=== PATIENT | female | born 1960 | race Caucasian/White ===

== ENCOUNTER → 2017-03-20 | Outpatient (CLI) | payer MEDICARE ==
--- NOTE | 2017-03-21 09:38 | MM ---
Reason for exam: screening (asymptomatic). Last mammogram was performed 1 year and 11 months ago. History: Patient is postmenopausal. Family history of breast cancer in maternal aunt at age 75. Took estrogen for 6 years 4 months. Physical Findings: A clinical breast exam by your physician is recommended on an annual basis and results should be correlated with mammographic findings. MG 3D Screening Mammo W/Cad Bilateral CC and MLO view(s) were taken. Prior study comparison: April 28, 2015, bilateral MG screening mammo w CAD. August 14, 2012, bilateral digital screening mammo w/CAD. Finding: There are new vascular calcifications in the right breast. Increase in number of calcifications since April 28, 2015 and August 14, 2012. ASSESSMENT: Benign, BI-RAD 2 RECOMMENDATION: Routine screening mammogram of both breasts in 1 year.
== END | disposition home or self-care (01) ==
LOC: RADMAMWWP 14:05
PROVIDERS: ATTEND Internal Medicine
DX: Z12.31 Encounter for screening mammogram for malignant neoplasm of breast (principal)
CPT/HCPCS: 77063; G0202

== ENCOUNTER 2018-09-22 10:00 | Emergency (ER) | payer MEDICARE ==
[2018-09-22 10:17] VITALS: BP 111/70; PULSE 93; RESP 16; TEMP 98.1
--- NOTE | 2018-09-22 10:25 | ED ---
General Adult HPI - General Chief complaint: Extremity Injury, Lower Stated complaint: fall, rt ankle pain Time Seen by Provider: 09/22/18 10:20 Source: patient, RN notes reviewed Mode of arrival: wheelchair Limitations: no limitations - History of Present Illness Initial comments: Patient 57-year-old female presenting to the emergency room today with a chief complaint of injury to the right foot and ankle that occurred early this morning. She states that she went to get up out of the chair in the right ankle gave out and she rolled over. She states that there is pain over the lateral aspect. Patient denies any other injury or complaint. Patient denies any recent fever, chills, shortness of breath, chest pain, back pain, abdominal pain, nausea or vomiting, headaches or visual changes, or any other complaints. - Related Data Home Medications Medication Instructions Recorded Confirmed Zolpidem Tartrate [Ambien] 5 mg PO HS 09/16/14 01/17/16 Previous Rx's Medication Instructions Recorded Aspirin 325 mg PO BID #60 tab 01/18/16 Docusate [Colace] 100 mg PO DAILY #30 capsule 01/18/16 Famotidine [Pepcid] 20 mg PO DAILY #30 tablet 01/18/16 HYDROcodone/APAP 7.5-325MG [[place] 1 - 2 each PO Q6HR PRN #60 tab 01/18/16 7.5-325] Levofloxacin [Levaquin] 500 mg PO DAILY #3 tab 01/18/16 Multivitamins, Thera [Multivitamin 1 each PO DAILY@1200 #30 tab 01/18/16 (formulary)] traMADol HCl [Ultram] 50 mg PO Q6H PRN #40 tab 01/18/16 Ibuprofen [Motrin] 600 mg PO Q6HR PRN #40 day 09/22/18 Allergies Allergy/AdvReac Type Severity Reaction Status Date / Time No Known Allergies Allergy Verified 09/22/18 10:17 Review of Systems ROS Statement: Those systems with pertinent positive or pertinent negative responses have been documented in the HPI. ROS Other: All systems not noted in ROS Statement are negative. Past Medical History Past Medical History: Thyroid Disorder History of Any Multi-Drug Resistant Organisms: None Reported Past Surgical History: Hysterectomy, Orthopedic Surgery Additional Past Surgical History / Comment(s): ALEX BUNION SX Past Anesthesia/Blood Transfusion Reactions: Postoperative Nausea & Vomiting ( PONV) Past Psychological History: No Psychological Hx Reported Smoking Status: Former smoker Past Alcohol Use History: Occasional Past Drug Use History: None Reported - Past Family History Mother History Unknown: Yes General Exam - General Exam Comments Initial Comments: General: The patient is awake and alert, in no distress, and does not appear acutely ill. Neck: The neck is supple, there is no tenderness or JVD. Musculoskeletal: Patient has normal appearance of the right foot and ankle no obvious deformity. Does have some mild tenderness over the fourth and fifth proximal metatarsals. Tender in the ATFL area. No tenderness over the lateral or medial malleolus. Pedal pulse 2+ per sensation intact. Shows good range motion. Neurological: A&O x 3. CN II-XII intact, There are no obvious motor or sensory deficits. Coordination appears grossly intact. Speech is normal. Skin: Skin is warm and dry and no rashes or lesions are noted. Psychiatric: Normal mood and affect. Limitations: no limitations Course Vital Signs 09/22/18 10:15 Temperature 98.1 F Pulse Rate 93 Respiratory 16 Rate Blood Pressure 111/70 O2 Sat by Pulse 99 Oximetry Medical Decision Making - Medical Decision Making Patient's x-rays reviewed are negative for any acute fracture dislocation. Patient tender in the ATFL. Findings consistent with ankle sprain. Patient given brace here in the emergency room. When she is up moving around. Bowel sounds. patient is advised follow-up with family physician/orthopedics in 7-10 days for repeat x-rays if symptoms persist. advised to ice elevate the affected area and use ibuprofen for pain. Disposition Clinical Impression: Ankle sprain Disposition: HOME SELF-CARE Condition: Good Instructions: Ankle Sprain (ED) Additional Instructions: Please continue to ice elevate the affected area at least 4 times a day for 20 minutes at a time. Please use Tylenol/ibuprofen for pain. Please follow-up in 7-10 days for repeat x-rays if symptoms persist. Please return to emergency room for any other concerns. Prescriptions: Ibuprofen [Motrin] 600 mg PO Q6HR PRN #40 day PRN Reason: Pain Is patient prescribed a controlled substance at d/c from ED?: No Referrals: Patti Chandler MD [Primary Care Provider] - 1-2 days Time of Disposition: 11:07
--- NOTE | 2018-09-22 10:46 | XR ---
EXAMINATION TYPE: XR foot complete RT, XR ankle complete RT DATE OF EXAM: 09/22/2018 COMPARISON: NONE HISTORY: Pain TECHNIQUE: Frontal, lateral and oblique images of the right ankle are obtained. COMPARISON: None. FINDINGS: There is no acute fracture/dislocation evident. The joint spaces appear within normal serra its. The overlying soft tissue appears unremarkable. IMPRESSION: There is no acute fracture or dislocation seen. EXAMINATION TYPE: XR foot complete RT, XR ankle complete RT DATE OF EXAM: 09/22/2018 CLINICAL HISTORY: pain TECHNIQUE: Frontal, lateral and oblique images of the right foot are obtained. COMPARISON: None. FINDINGS: There is no acute fracture/dislocation evident. Fusion interphalangeal joint great toe. Th e overlying soft tissue appears unremarkable. IMPRESSION: There is no acute fracture or dislocation. ICD 10 NO FRACTURE, INITIAL EVALUATION
== END 2018-09-22 11:30 | disposition home or self-care (01) ==
LOC: EC 10:00
DX: S93.401A Sprain of unspecified ligament of right ankle, initial encounter (principal); Z87.891 Personal history of nicotine dependence; Z79.899 Other long term (current) drug therapy; X50.1XXA Overexertion from prolonged static or awkward postures, initial encounter; Y92.009 Unspecified place in unspecified non-institutional (private) residence as the place of occurrence of the external cause
CPT/HCPCS: 99283

== ENCOUNTER → 2018-10-01 | Outpatient (CLI) | payer MEDICARE ==
--- NOTE | 2018-10-01 14:24 | XR ---
EXAMINATION TYPE: XR foot complete RT DATE OF EXAM: 10/01/2018 CLINICAL HISTORY: pain TECHNIQUE: Frontal, lateral and oblique images of the right foot are obtained. COMPARISON: 09/22/2018 FINDINGS: There is no acute fracture/dislocation evident. Again noted is fusion of the interphalange al joint great toe. The overlying soft tissue appears unremarkable. IMPRESSION: There is no acute fracture or dislocation. ICD 10 NO FRACTURE, INITIAL EVALUATION
== END | disposition home or self-care (01) ==
LOC: RADXRYALE 13:44
PROVIDERS: ATTEND Physician Assistant Medical
DX: M25.571 Pain in right ankle and joints of right foot (principal)

== ENCOUNTER → 2018-10-09 | Outpatient (CLI) | payer MEDICARE ==
--- NOTE | 2018-10-09 08:51 | MR ---
EXAMINATION TYPE: MR shoulder LT wo con DATE OF EXAM: 10/09/2018 COMPARISON: Outside left shoulder x-ray September 03, 2018 HISTORY: Left Shoulder Pain per order. Pain for 4 months per patient. TECHNIQUE: Multiplanar, multisequence imaging of the left shoulder is performed without contrast. FINDINGS: Rotator Cuff: There is some increased signal in the distal supraspinatus and infraspinatus tendons ne ar articular surface. There is small articular surface tear of distal supraspinatus tendon measuring roughly 4 mm transversely paracoronal image 12 by 5 to 6 mm AP diameter parasagittal image 6 . No ful l-thickness retracted tear is seen. Rotator cuff muscle bulk is preserved. Subscapularis tendon is in tact. Acromioclavicular Joint: There is mild to moderate narrowing with mild capsular hypertrophy at acromi oclavicular joint. Inferior fat plane is maintained. No significant spurring is seen. Distal acromion morphology is slightly downsloping. Glenohumeral Joint: Mild narrowing glenohumeral joint with small to moderate-sized effusion is presen t. Labrum: Some degenerative increased signal superior labrum is identified. Biceps Tendon: The long head of biceps is in normal location within bicipital groove. Bone marrow signal: Some heterogeneity consistent with red marrow reconversion is present. Other: Subdeltoid/subacromial fluid is seen consistent with mild bursitis. IMPRESSION: 1. Tendinosis of distal supraspinatus and infraspinatus tendons with small focal articular surface te ar distal supraspinatus tendon noted. 2. Mild to moderate glenohumeral and acromioclavicular joint arthropathy, type II downsloping acromio n noted.
== END | disposition home or self-care (01) ==
LOC: RADMRIMAIN 07:49
PROVIDERS: ATTEND Orthopaedic Surgery
DX: S46.812A Strain of other muscles, fascia and tendons at shoulder and upper arm level, left arm, initial encounter (principal); M19.012 Primary osteoarthritis, left shoulder; M75.82 Other shoulder lesions, left shoulder

== ENCOUNTER → 2018-10-28 | Outpatient (CLI) | payer MEDICARE ==
--- NOTE | 2018-10-28 18:43 | MR ---
EXAMINATION TYPE: MR lumbar spine wo con DATE OF EXAM: 10/28/2018 COMPARISON: None HISTORY: 58-year-old female Severe Back pain x3 months TECHNIQUE: Multiplanar, multisequence images of the lumbar spine were acquired. Findings: Vertebral body heights are preserved and alignment is maintained. No suspicious bone marrow replacement. Conus medullaris is normal. No prevertebral or paravertebral soft tissue abnormality seen. The exam is limited due to patient motion. Mild intervertebral disc desiccation seen variably throughout. Mild bulging disks mid to lower lumbar spine as well as facet arthropathy lower lumbar spine. From T12 through L3 levels, no spinal canal or neuroforaminal stenosis. At L3-L4, facet arthropathy with minimal disc bulge. There is minimal inferior foraminal narrowing on the right. No spinal canal stenosis. L4-L5, facet arthropathy with minimal bulging disc. No significant spinal canal or neuroforaminal bhumi nosis. At L5-S1, facet arthropathy is present and minimal bulging disc. No significant spinal canal or landon inal stenosis. IMPRESSION: 1. Mild intervertebral disc desiccation seen variably throughout and minimal bulging discs mid to low er lumbar spine. 2. Mild facet arthropathy lower lumbar spine. 3. No focal disc herniation or significant spinal canal or foraminal stenosis seen.
== END | disposition home or self-care (01) ==
LOC: RADMRIMAIN 12:51
PROVIDERS: ATTEND Family Medicine
DX: M51.26 Other intervertebral disc displacement, lumbar region (principal); M46.96 Unspecified inflammatory spondylopathy, lumbar region
CPT/HCPCS: 72148

== ENCOUNTER → 2018-11-18 | Outpatient (CLI) | payer MEDICARE ==
[2018-11-18 13:40] LABS: Basophils # (A) 0.1 k/uL (0-0.2); Basophils % (A) 1 %; Eosinophils # (A) 1.2 k/uL (0-0.7); Eosinophils % (A) 9 %; HCT 31.6 % (34.0-46.0); HGB 9.2 gm/dL (11.4-16.0); Hypochromasia Marked; Lymphocytes # (A) 2.7 k/uL (1.0-4.8); Lymphocytes % (A) 21 %; MCH 22.8 pg (25.0-35.0); MCHC 29.2 g/dL (31.0-37.0); MCV 78.1 fL (80.0-100.0); Mean Platelet Volume 6.4; Monocytes # (A) 0.8 k/uL (0-1.0); Monocytes % (A) 6 %; Neutrophils # (A) 7.7 k/uL (1.3-7.7); Neutrophils % (A) 60 %; Platelet Count 712 k/uL (150-450); RBC 4.05 m/uL (3.80-5.40); RDW 15.4 % (11.5-15.5); WBC 12.9 k/uL (3.8-10.6)
[2018-11-18 14:01] LABS: Potassium 5.2 mmol/L (3.5-5.1)
== END | disposition home or self-care (01) ==
LOC: LABPAT 11:47
PROVIDERS: ATTEND Orthopaedic Surgery
DX: Z01.812 Encounter for preprocedural laboratory examination (principal); M75.42 Impingement syndrome of left shoulder; Z01.818 Encounter for other preprocedural examination
CPT/HCPCS: 36415; 80051; 85025; 93005

== ENCOUNTER 2018-11-27 08:47 | Day surgery (SDC) | payer MEDICARE ==
[2018-11-26 08:51] VITALS: BMI 31.8
--- NOTE | 2018-11-26 14:18 | HP ---
HISTORY AND PHYSICAL DATE OF SURGERY: 11/27/2018 Charleen Brody is a 58-year-old patient seen with progressive left shoulder pain. We discussed treatment options. She elected to proceed with arthroscopy. Consent was obtained. PAST MEDICAL HISTORY: Hypothyroidism. PAST SURGICAL HISTORY: Cholecystectomy, hysterectomy. MEDICATIONS: 1. Ambien. 2. Synthroid. ALLERGIES: None. SOCIAL HISTORY: She denies tobacco use. PHYSICAL EVALUATION OF THE LEFT SHOULDER: Flexion 160 degrees, abduction 150 degrees, external rotation is 50 degrees. Weakness, there is tenderness along the anterolateral acromion rotator cuff insertion site. Impingement is positive AT 100 degrees. Drop-arm sign is positive. Distal neurovascular exam is intact. RADIOGRAPHS OF THE LEFT SHOULDER: Revealed a type 2 anterior acromion, acromioclavicular joint osteoarthritis and cystic changes of the greater tuberosity. An MRI of the left shoulder revealed rotator cuff tear and acromioclavicular joint osteoarthritis. IMPRESSION: Left shoulder impingement with rotator cuff tear. PLAN: Left shoulder arthroscopy with subacromial decompression, probable arthroscopic rotator cuff repair, possible Tamra procedure and debridement. MMODL / IJN: [id number] /
[~2018-11-27 08:47] MED LIST: DEXAMETHASONE SOD PHOSPHATE 10 MG/ML 1 ML VIAL IV ONE; HYDROmorphone 0.5 MG/0.5 ML SYRINGE IVP PRN; LACTATED RINGERS 1,000 ML IV SCH; MIDAZOLAM (PF) 2 MG/2 ML VIAL IV PRN; ONDANSETRON 4 MG/2 ML VIAL IVP ONE; SCOPOLAMINE 1.5MG/72HR PATCH TRANSDERM ONE; ceFAZolin IN SWFI 2 GM/20 ML SYRINGE IVP ONE
[2018-11-27 09:44] LABS: Anisocytosis Slight; Basophils % (A) 0 %; Eosinophils # (A) 0.8 k/uL (0-0.7); Eosinophils % (A) 7 %; HCT 30.5 % (34.0-46.0); HGB 8.9 gm/dL (11.4-16.0); Hypochromasia Marked; Lymphocytes # (A) 1.1 k/uL (1.0-4.8); Lymphocytes % (A) 9 %; MCH 22.7 pg (25.0-35.0); MCHC 29.3 g/dL (31.0-37.0); MCV 77.5 fL (80.0-100.0); Mean Platelet Volume 5.6; Microcytosis Slight; Monocytes # (A) 0.5 k/uL (0-1.0); Monocytes % (A) 4 %; Neutrophils % (A) 78 %; Platelet Count 554 k/uL (150-450); RBC 3.93 m/uL (3.80-5.40); RDW 16.1 % (11.5-15.5); WBC 11.6 k/uL (3.8-10.6)
[2018-11-27] MEDS ORDERED: fentaNYL (PF) 50 MCG/ML 2 ML AMP IV ONE (09:51)
[2018-11-27] MEDS ORDERED: ROPIVACAINE 5 MG/ML 30 ML VIAL ONE (10:01)
[2018-11-27] MEDS ORDERED: KETOROLAC 30 MG/ML 1 ML VIAL ONE (10:01)
[2018-11-27] MEDS ORDERED: fentaNYL (PF) 50 MCG/ML 2 ML AMP ONE (10:01)
[2018-11-27] MEDS ORDERED: ROCURONIUM BROMIDE 10 MG/ML 10 ML VIAL IV ONE (10:01)
[2018-11-27] MEDS ORDERED: LIDOCAINE 1% INJ 10MG/ML (20 ML MDV) ONE (10:01)
[2018-11-27] MEDS ORDERED: NEOSTIGMINE 1 MG/ML 10 ML VIAL ONE (10:01)
[2018-11-27] MEDS ORDERED: MIDAZOLAM 2 MG/2 ML VIAL ONE (10:01)
[2018-11-27] MEDS ORDERED: GLYCOPYRROLATE 0.2 MG/ML 2 ML VIAL ONE (10:01)
[2018-11-27] MEDS ORDERED: PROPOFOL 10 MG/ML 20 ML VIAL IV ONE (10:01)
[2018-11-27] MEDS ORDERED: PHENYLEPHRINE-0.9% NACL SYG 1 MG/10 ML SYRINGE ONE (10:01)
--- NOTE | 2018-11-27 10:08 | P.ONQ ---
Anesthesiology Proc Note - PNB - Peripheral Nerve Block Performed Left Interscalene Single Time Out Performed: Yes ([id number]) Procedure Start Time: :52 Procedure Stop Time: :59 Indication: Acute Post-Operative Pain, Dx/Pain Location (Left Shoulder) Sedation Type: Sedate with meaningful contact maintained Preparation: Sterile Prep Catheter: None Needle Types: On-Q Needle Size: 100mm (4") Needle Gauge: 21 Technique: Ultrasound Injectate: Other (see comment) (20ml 0.375% Ropivacaine) Blood Aspirated: No Pain Paresthesia on Injection Noted: No Resistance on Injection: Normal Events: Uneventful and Well Tolerated
[2018-11-27 11:35] VITALS: TEMP 97.1
--- NOTE | 2018-11-27 11:38 | P.OP ---
Date of Procedure: 11/27/18 Preoperative Diagnosis: Left shoulder impingement Postoperative Diagnosis: 1. Left shoulder rotator cuff tear 2. Left shoulder impingement 3. Left shoulder acromioclavicular joint osteoarthritis 4. Left shoulder partial long head biceps tendon tear Procedure(s) Performed: 1. Left shoulder arthroscopic rotator cuff repair 2. Left shoulder arthroscopic subacromial decompression 3. Left shoulder arthroscopic Tamra procedure 4. Left shoulder arthroscopic biceps tenotomy Implants: None Anesthesia: YESENIA Surgeon: Mandeep Lopez [employer] Set Up Operator #1: Mehrdad Nelson Estimated Blood Loss (ml): 10 Pathology: none sent Condition: stable Disposition: PACU Indications for Procedure: 58-year-old patient seen with progressive left shoulder pain. After treatment options were discussed, she elected to proceed with arthroscopy. Operative Findings: See description of procedure Description of Procedure: Patient underwent an interscalene block by department of anesthesia. The patient was then taken to the operative suite. The patient underwent a general anesthetic by the department of anesthesia. The patient was placed into a lateral position and secured. There was appropriate padding of the bony prominence. Left shoulder was then prepped and draped in normal sterile orthopedic fashion. We placed the extremity in 10 pounds of longitudinal traction. A posterior incision was now made for a posterior working portal site. The trocar and cannula were inserted into the glenohumeral joint. Arthroscopy was initiated. Spinal needle was now inserted anteriorly, to ascertain the anterior working portal site. An incision was now made in that area, a trocar was inserted followed by a probe. There was some partial tearing and hyperemia long head biceps tendon. There was some superficial fraying of the anterior labrum. There were some mild grade 1 chondromalacia changes of the glenoid anteriorly. The posterior and inferior labrum were stable. I performed an arthroscopic biceps tenotomy. I debrided that superficial fraying of the anterior labrum with a motorized shaver. The residual labrum was probed and found to be stable. Instruments were now removed from the glenohumeral joint. Utilizing the posterior working portal site, the trocar and cannula were inserted into the subacromial space. Arthroscopy initiated. I made an incision 2 fingerbreadths lateral to the acromion. I introduced my trocar followed by my [employer] ablator. I now began ablating thick subacromial bursal tissue, which exposed the undersurface of the anterior acromion. There was diminished subacromial space. There was a very prominent anterior acromion. A motorized bur was introduced and a subacromial decompression was performed. I also excised some osteophytes off the inferior aspect of the distal clavicle. The AC joint was visualized and noted to be fairly arthritic. The motorized bur was introduced in the anterior portal site and a Tamra procedure was performed without difficulty, decompressing the AC joint nicely. I turned my attention to the rotator cuff. There was some fraying along the midportion of the supraspinatus tendon. When I probed the anterior there was a full-thickness perforation in the intrasubstance midportion supraspinatus. I debrided the margins down to stable tissue. I now passed 2 simple sutures with good bites of rotator cuff tendon. I now repaired the tear in a [id number] fashion. Residual suture limbs were clipped. The repair was probed and found to be stable. I injected 1 mL Renue intra-articular. Instruments now removed from the portal sites. All portal sites were approximated with nylon suture. Sterile dressings were applied followed by a shoulder sling. Mehrdad LUTZ assisted in this complex case. The patient was awakened, transferred to a bed, and taken to recovery in stable condition.
[2018-11-27] MEDS ORDERED: HYDROcodone/APAP 7.5-325MG 1 EACH TAB PO ONE (13:22)
[2018-11-27 13:39] VITALS: BP 131/90; PULSE 78; RESP 18
== END 2018-11-27 14:35 | disposition home or self-care (01) ==
LOC: OR 08:47
PROVIDERS: ATTEND Orthopaedic Surgery
DX: M19.012 Primary osteoarthritis, left shoulder (principal); M75.42 Impingement syndrome of left shoulder; M75.122 Complete rotator cuff tear or rupture of left shoulder, not specified as traumatic; S46.112A Strain of muscle, fascia and tendon of long head of biceps, left arm, initial encounter; X58.XXXA Exposure to other specified factors, initial encounter; E03.9 Hypothyroidism, unspecified; Z79.890 Hormone replacement therapy; Z79.899 Other long term (current) drug therapy; Z87.891 Personal history of nicotine dependence
CPT/HCPCS: 64415; 84132; 85025; 29827; 29822; C1713; C1765; J2250 ×2; J1100; J2710; J2405; J2001; J3010; J1885; J2795; J2370; J2704; J0690

== ENCOUNTER 2018-12-02 10:33 | Emergency (ER) | payer MEDICARE ==
[2018-12-02 10:55] VITALS: TEMP 98.1
[2018-12-02] MEDS: MORPHINE SULFATE 4 MG/ML SYRINGE IVP STA (12:19)
[2018-12-02] MEDS: DIAZEPAM 5 MG/ML 2 ML INJ IVP STA (12:21)
[2018-12-02 12:47] LABS: Anisocytosis Slight; Basophils # (A) 0.1 k/uL (0-0.2); Basophils % (A) 1 %; Eosinophils # (A) 1.3 k/uL (0-0.7); Eosinophils % (A) 11 %; HCT 31.7 % (34.0-46.0); HGB 9.6 gm/dL (11.4-16.0); Hypochromasia Marked; Lymphocytes # (A) 2.5 k/uL (1.0-4.8); Lymphocytes % (A) 21 %; MCH 22.8 pg (25.0-35.0); MCHC 30.3 g/dL (31.0-37.0); MCV 75.5 fL (80.0-100.0); Mean Platelet Volume 5.6; Microcytosis Slight; Monocytes # (A) 0.6 k/uL (0-1.0); Monocytes % (A) 5 %; Neutrophils # (A) 7.4 k/uL (1.3-7.7); Neutrophils % (A) 62 %; Platelet Count 520 k/uL (150-450); RDW 16.3 % (11.5-15.5); WBC 11.9 k/uL (3.8-10.6)
[2018-12-02 13:00] LABS: ALT 24 U/L (9-52); AST 22 U/L (14-36); Albumin 4.2 g/dL (3.5-5.0); Alkaline Phosphatase 189 U/L (38-126); Anion Gap 9 mmol/L; Blood Urea Nitrogen 15 mg/dL (7-17); Calcium 10.1 mg/dL (8.4-10.2); Carbon Dioxide 27 mmol/L (22-30); Chloride 104 mmol/L (98-107); Glucose 94 mg/dL (74-99); Potassium 4.2 mmol/L (3.5-5.1); Sodium 140 mmol/L (137-145); Total Bilirubin 0.7 mg/dL (0.2-1.3); Total Protein 7.2 g/dL (6.3-8.2)
--- NOTE | 2018-12-02 13:54 | CT ---
EXAMINATION TYPE: CT thoracic spine wo con DATE OF EXAM: 12/02/2018 COMPARISON: None HISTORY: Back pain CT DLP: 870.3 mGycm Automated exposure control for dose reduction was used. FINDINGS: Assessment of the spinal canal is are currently limited due to resolution and artifact. No obvious di sc herniation. Recommend follow-up MRI. Grossly alignment is anatomic. No compression deformities. There is a multilevel mild hypertrophic an d degenerative disc disease. The lower thoracic spine there is a calcification of the disc which is n onspecific and MRI correlation recommended. 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 No acute fracture. Calcification of the disc space of the lower thoracic segment is noted which is nonspecific. Follow-up MRI recommended. 2. Multilevel degenerative disc disease.
--- NOTE | 2018-12-02 14:07 | ED ---
Back Pain HPI - General Chief Complaint: Back Pain/Injury Stated Complaint: back pain Time Seen by Provider: 12/02/18 11:00 Source: patient Limitations: no limitations - History of Present Illness Initial Comments: 58-year-old female presenting today for chief complaint of thoracic back pain. Patient states she has been suffering with pain in the middle of her upper back for quite some time now she states it began in the summertime and has been persistent and constant in characteristic. Patient does describe this as a burning pain in the center of the back that increases with range of motion without radiation. She states that increases with any range of motion including raising her hands over her head. She states she has been evaluated by orthopedic surgery however they obtained a MRI of her lumbar spine not thoracic. Patient states she does occasionally have tingling in her upper extremities bilaterally. Patient states she has not had this recently. Patient states there is no change in the characteristic or intensity of the pain recently however due to the persistence of the pain she presented for evaluation today. Patient states that she does not have pain when she takes her Min[place] however she does not want to have to take this. Patient states she is hoping for alternative solution to pain. Patient denies any recent trauma, history of cancer. Patient denies any dyspnea on exertion chest pain, nausea or vomiting, history of diabetes or hypertension.. Remaining review of systems negative, patient well-appearing upon arrival. There is a sling of the left arm , patient states she had a recent left shoulder surgery. She does deny any change in the pain since left shoulder surgery. Patient denies any hemoptysis, calf swelling, arm swelling, arm or calf pain. - Related Data Home Medications Medication Instructions Recorded Confirmed Levothyroxine Sodium [Synthroid] 100 mcg PO QAM 11/26/18 12/02/18 Nabumetone [Relafen] 750 mg PO BID 12/02/18 12/02/18 Previous Rx's Medication Instructions Recorded HYDROcodone/APAP 7.5-325MG [Mineral 1 each PO Q6HR PRN #28 tab 11/27/18 7.5] Cyclobenzaprine [Flexeril] 10 mg PO HS 15 Days #15 tab 12/02/18 Allergies Allergy/AdvReac Type Severity Reaction Status Date / Time No Known Allergies Allergy Verified 12/02/18 11:12 Review of Systems ROS Statement: Those systems with pertinent positive or pertinent negative responses have been documented in the HPI. ROS Other: All systems not noted in ROS Statement are negative. Past Medical History Past Medical History: Thyroid Disorder History of Any Multi-Drug Resistant Organisms: None Reported Past Surgical History: Hysterectomy, Orthopedic Surgery Additional Past Surgical History / Comment(s): ALEX BUNLENNY SX Past Anesthesia/Blood Transfusion Reactions: Postoperative Nausea & Vomiting ( PONV) Past Psychological History: No Psychological Hx Reported Smoking Status: Former smoker Past Alcohol Use History: Unable to Obtain, Rare Past Drug Use History: None Reported - Past Family History Mother History Unknown: Yes General Exam - General Exam Comments Initial Comments: General: The patient is awake and alert, in no distress, and does not appear acutely ill. Eye: Pupils are equal, round and reactive to light, extra-ocular movements are intact. No nystagmus. There is normal conjunctiva bilaterally. No signs of icterus. Ears, nose, mouth and throat: There are moist mucous membranes and no oral lesions. Neck: The neck is supple, there is no tenderness or JVD. Cardiovascular: There is a regular rate and rhythm. No murmur, rub or gallop is appreciated. Respiratory: Lungs are clear to auscultation, respirations are non-labored, breath sounds are equal. No wheezes, stridor, rales, or rhonchi. Gastrointestinal: Soft, non-distended, non-tender abdomen without masses or organomegaly noted. There is no rebound or guarding present. No CVA tenderness. Bowel sounds are unremarkable. Musculoskeletal: Normal inspection the back. Patient is tender to palpation midline and paravertebral paravertebral of the thoracic spine, palpable muscle tension.. Normal ROM of the lumbar and thoracic spine however patient does complain of tenderness to all movement of the thoracic spine. Strength 5/5 of the upper and lower extremities equal bilaterally. Sensation intact of the upper and lower extremities equal bilaterally. DP and radial pulses equal bilaterally 2+.Capillary refill < 2 seconds. Neurological: A&O x 3. CN II-XII intact, There are no obvious motor or sensory deficits. Coordination appears grossly intact. Speech is normal. Skin: Skin is warm and dry and no rashes or lesions are noted. Psychiatric: Cooperative, appropriate mood & affect, normal judgment. Limitations: no limitations Course Vital Signs 12/02/18 12/02/18 12/02/18 10:52 13:26 14:46 Temperature 98.1 F Pulse Rate 75 70 74 Respiratory 18 16 18 Rate Blood Pressure 148/86 116/71 155/82 O2 Sat by Pulse 98 100 Oximetry Medical Decision Making - Medical Decision Making 58-year-old female presenting today for chief complaint of persistent thoracic back pain for greater than 6 months. Physical examination reveals tenderness to palpation of the thoracic spine both midline and paravertebral, this prompted CT without contrast. This revealed no acute process. Chest x-ray revealed no acute process. Patient appears well, she was giving morphine for pain. She states this result pain. Patient states that anytime pain medication will resolve the pain however she does not want to continue take pain medications. At this time I recommended orthopedic surgery follow-up for thoracic spine MRI. She does have a lumbar MRI on file. Patient is neurovascularly intact. Patient is well-appearing, patient does have elevation of blood pressure which I recommended primary care follow-up. Patient is agreeable plan discharge. Patient is a question of this time. Patient discharged in stable condition appearing well. Laboratory studies within acceptable limits. Case was discussed with attending provider Dr. Haynes in detail prior to patient's discharge - Lab Data Result diagrams: 12/02/18 12:13 12/02/18 12:13 Lab Results 12/02/18 12/02/18 12/02/18 Range/Units 12:13 12:13 12:13 WBC 11.9 H (3.8-10.6) k/uL RBC 4.20 (3.80-5.40) m/uL Hgb 9.6 L (11.4-16.0) gm/dL Hct 31.7 L (34.0-46.0) % MCV 75.5 L (80.0-100.0) fL MCH 22.8 L (25.0-35.0) pg MCHC 30.3 L (31.0-37.0) g/dL RDW 16.3 H (11.5-15.5) % Plt Count 520 H (150-450) k/uL Neutrophils % 62 % Lymphocytes % 21 % Monocytes % 5 % Eosinophils % 11 % Basophils % 1 % Neutrophils # 7.4 (1.3-7.7) k/uL Lymphocytes # 2.5 (1.0-4.8) k/uL Monocytes # 0.6 (0-1.0) k/uL Eosinophils # 1.3 H (0-0.7) k/uL Basophils # 0.1 (0-0.2) k/uL Hypochromasia Marked Anisocytosis Slight Microcytosis Slight Sodium 140 (137-145) mmol/L Potassium 4.2 (3.5-5.1) mmol/L Chloride 104 (98-107) mmol/L Carbon Dioxide 27 (22-30) mmol/L Anion Gap 9 mmol/L BUN 15 (7-17) mg/dL Creatinine 0.69 (0.52-1.04) mg/dL Est GFR (CKD-EPI)AfAm >90 (>60 ml/min/1.73 sqM) Est GFR (CKD-EPI)NonAf >90 (>60 ml/min/1.73 sqM) Glucose 94 (74-99) mg/dL Calcium 10.1 (8.4-10.2) mg/dL Total Bilirubin 0.7 (0.2-1.3) mg/dL AST 22 (14-36) U/L ALT 24 (9-52) U/L Alkaline Phosphatase 189 H (38-126) U/L Troponin I <0.012 (0.000-0.034) ng/mL Total Protein 7.2 (6.3-8.2) g/dL Albumin 4.2 (3.5-5.0) g/dL Disposition Clinical Impression: Thoracic degenerative disc disease, Chronic thoracic back pain Disposition: HOME SELF-CARE Condition: Good Instructions (If sedation given, give patient instructions): Chronic Back Pain (ED) Additional Instructions: Please use medication as discussed. Please follow-up with family doctor in the next 2 days, please follow-up with orthopedic surgery in the next 2-3 days. Recommend outpatient THORACIC MRI. NOT LUMBAR. Please return to emergency room if the symptoms increase or worsen or for any other concerns. Prescriptions: Cyclobenzaprine [Flexeril] 10 mg PO HS 15 Days #15 tab Is patient prescribed a controlled substance at d/c from ED?: No Referrals: Ronnell Vivas DO [Primary Care Provider] - 1-2 days Jv Low DO [Doctor of Osteopathic Medicine] - 1-2 days Time of Disposition: 14:26
--- NOTE | 2018-12-02 14:21 | XR ---
EXAMINATION TYPE: XR chest 2V DATE OF EXAM: 12/02/2018 COMPARISON: 02/18/2015 HISTORY: Back pain. No known injury. TECHNIQUE: Frontal and lateral views of the chest are obtained. FINDINGS: There is no focal air space opacity, pleural effusion, or pneumothorax seen. The cardiac silhouette size is within normal limits. The osseous structures display mild degenerative changes o f the thoracic spine at multiple levels. Cholecystectomy clips are noted. IMPRESSION: No acute cardiopulmonary process. Mild degenerative changes of the thoracic spine in thi s patient with back pain.
[2018-12-02 14:47] VITALS: BP 155/82; PULSE 74; RESP 18
== END 2018-12-02 14:47 | disposition home or self-care (01) ==
LOC: EC 10:33
DX: M51.34 Other intervertebral disc degeneration, thoracic region (principal); E07.9 Disorder of thyroid, unspecified; Z87.891 Personal history of nicotine dependence; Z79.890 Hormone replacement therapy; Z79.1 Long term (current) use of non-steroidal anti-inflammatories (NSAID)
CPT/HCPCS: 36415; 80053; 84484; 85025; 71046; 72128; 99284; 96374; 96375; J2270; J3360

== ENCOUNTER → 2018-12-13 | Outpatient (CLI) | payer MEDICARE ==
--- NOTE | 2018-12-14 19:20 | MR ---
MR scan of the thoracic spine. History back pain. Comparison none. TECHNIQUE: Multiplanar multiecho imaging of the thoracic spine was performed with no contrast. FINDINGS: The thoracic vertebra have normal alignment. Disc spaces are fairly normal. There is mild biconcave c hange in the T10 vertebral body. This could relate to osteomalacia. Thoracic spinal cord has normal s ignal pattern. There is no edema. There is no thoracic spinal stenosis. There is no thoracic paraspin al mass. I see no focal bone destruction. There is also slight T8 mild biconcave change. IMPRESSION: Mild biconcave loss of height of T8 and T10 could relate to osteomalacia.
== END | disposition home or self-care (01) ==
LOC: RADMRIMAIN 20:52
PROVIDERS: ATTEND Physician Assistant Medical
DX: M43.8X4 Other specified deforming dorsopathies, thoracic region (principal); M54.6 Pain in thoracic spine; R93.7 Abnormal findings on diagnostic imaging of other parts of musculoskeletal system
CPT/HCPCS: 72146

== ENCOUNTER → 2019-02-06 | Outpatient (CLI) | payer MEDICARE ==
--- NOTE | 2019-02-06 16:53 | NM ---
EXAMINATION TYPE: NM bone scan whole body DATE OF EXAM: 02/06/2019 COMPARISON: NONE HISTORY: Muscle spasms, abnormality at T8 and T10 Delayed whole-body scanning was performed following the injection of 25 mCi Tc 99m MDP. Images were acquired 3 hours post injection. FINDINGS: Right knee prosthesis is evident. There is mild uptake adjacent to the prosthesis. There is diffuse uptake at the bilateral ankles greater at the right. Some focal uptake may be at the first metatarsophalangeal joint space and at the distal interphalangeal joint space of the great toe on the right. Some diffuse uptake is at the left shoulder. These findings are likely related to dege nerative change. No suspicious uptake is through the axial skeleton. No abnormal uptake in the lower thoracic spine IMPRESSION: 1. Mild uptake at the ankles which may be related to degenerative changes. 2. Right knee prosthesis. 3. No suspicious uptake within the thoracic spine.
== END | disposition home or self-care (01) ==
LOC: RADNMMAIN 10:50
PROVIDERS: ATTEND Physical Medicine & Rehabilitation
DX: R93.7 Abnormal findings on diagnostic imaging of other parts of musculoskeletal system (principal); M54.6 Pain in thoracic spine; E03.9 Hypothyroidism, unspecified; E78.5 Hyperlipidemia, unspecified; M62.830 Muscle spasm of back; Z96.651 Presence of right artificial knee joint
CPT/HCPCS: 78306; A9503

== ENCOUNTER → 2019-11-17 | Outpatient (CLI) | payer MEDICARE ==
--- NOTE | 2019-11-18 13:10 | MM ---
Reason for exam: screening (asymptomatic). Last mammogram was performed 2 years and 8 months ago. History: Patient is postmenopausal. Family history of breast cancer in maternal aunt at age 75. Took estrogen for 6 years 4 months. Physical Findings: A clinical breast exam by your physician is recommended on an annual basis and results should be correlated with mammographic findings. MG 3D Screening Mammo W/Cad Bilateral CC and MLO view(s) were taken. Prior study comparison: March 20, 2017, bilateral MG 3d screening mammo w/cad. April 28, 2015, bilateral MG screening mammo w CAD. The breast tissue is heterogeneously dense. This may lower the sensitivity of mammography. Benign appearing calcifications in the right breast. No significant changes when compared with prior studies. ASSESSMENT: Benign, BI-RAD 2 RECOMMENDATION: Routine screening mammogram of both breasts in 1 year.
== END | disposition home or self-care (01) ==
LOC: RADMAMWWP 15:21
PROVIDERS: ATTEND Family Medicine
DX: Z12.31 Encounter for screening mammogram for malignant neoplasm of breast (principal)
CPT/HCPCS: 77063; 77067

== ENCOUNTER → 2019-11-24 | Outpatient (CLI) | payer MEDICARE ==
--- NOTE | 2019-11-24 10:40 | XR ---
EXAMINATION TYPE: XR chest 2V DATE OF EXAM: 11/24/2019 COMPARISON: Chest x-ray December 02, 2018. HISTORY: History of tobacco use with cough, presurgical study. TECHNIQUE: Frontal and lateral views of the chest are obtained. FINDINGS: Background chronic emphysematous change with right upper lung fibrosis redemonstrated. The re is no focal air space opacity, pleural effusion, or pneumothorax seen. The cardiac silhouette siz e remains within normal limits with atherosclerotic thoracic aorta. The osseous structures are inta ct. IMPRESSION: Chronic changes without acute pulmonary process.
== END | disposition home or self-care (01) ==
LOC: RADXRYALE 10:16
PROVIDERS: ATTEND Physician Assistant Medical
DX: Z01.818 Encounter for other preprocedural examination (principal); F17.211 Nicotine dependence, cigarettes, in remission
CPT/HCPCS: 71046

== ENCOUNTER → 2020-10-13 | Outpatient (CLI) | payer MEDICARE ==
--- NOTE | 2020-10-13 15:50 | XR ---
EXAMINATION TYPE: XR chest 2V DATE OF EXAM: 10/13/2020 COMPARISON: X-ray November 24, 2019 HISTORY: Other chest pain. Left mid back pain. TECHNIQUE: Frontal and lateral views of the chest are obtained. FINDINGS: There is chronic parenchymal changes without suspicious focal air space opacity, pleural effusion, or pneumothorax seen. The cardiac silhouette size is stab le and upper limits of normal with atherosclerotic change aortic knob. Underlying scoliotic curvature is redemonstrated. IMPRESSION: Chronic changes without acute pulmonary process. No significant change from prior.
== END | disposition home or self-care (01) ==
LOC: RADXRYALE 15:28
PROVIDERS: ATTEND Physician Assistant Medical
DX: R91.8 Other nonspecific abnormal finding of lung field (principal); R07.89 Other chest pain
CPT/HCPCS: 71046

== ENCOUNTER → 2021-01-11 | Outpatient (CLI) | payer MEDICARE ==
--- NOTE | 2021-01-14 12:06 | CT ---
EXAMINATION TYPE: CT abdomen pelvis wo con DATE OF EXAM: 01/11/2021 COMPARISON: 09/14/2011 INDICATION: Generalized abdomen pain, dysuria, back pain. DLP: 382.4 mGycm, Automated exposure control for dose reduction was used. CONTRAST: 0 mL of Isovue 300. Study performed with Oral Contrast TECHNIQUE: Axial images were obtained from above the diaphragm to the pubic rami in the axial plane a t 5 mm thick sections. Reconstructed images are reviewed on the computer in the coronal plane. FINDINGS: Limited CT sections are obtained the lung bases. The lung bases are clear. CT ABDOMEN: There is some prominence of the wall of the antrum of the stomach. Liver: Normal Spleen: Normal Pancreas: Normal Adrenal glands: The adrenal glands are normal. Gallbladder: Surgically absent Kidneys: No masses are evident. No hydronephrosis is present. No cysts are present. No renal stone s are identified. Minimal right hydroureter may be present. No obstructing etiology is evident. Aorta: Vascular calcification is within the aorta. Inferior vena cava: Normal. CT PELVIS: Loops of bowel within the abdomen and pelvis are normal. Diverticulosis without acute diverticulitis is present in the sigmoid colon. There are loops of bowel which are incompletely distended or lack oral contrast limiting their evaluation. Appendix: Normal as visualized. Urinary bladder: Normal. Genitourinary structures: Uterus and ovaries are not identified. Osseous structures: No suspicious lytic or sclerotic lesions are evident. IMPRESSIONS: 1. Sigmoid diverticulosis without acute diverticulitis. 2. There appears to be some prominence of the antrum of the stomach. Correlate for antritis. This cou ld be from incomplete distention.
== END ==
LOC: RADCTMAIN 17:21
PROVIDERS: ATTEND Family Medicine
DX: K57.30 Diverticulosis of large intestine without perforation or abscess without bleeding (principal)
CPT/HCPCS: 74176

== ENCOUNTER → 2022-03-02 | Outpatient (CLI) | payer MEDICARE ==
--- NOTE | 2022-03-03 09:09 | BD ---
EXAMINATION TYPE: Axial Bone Density DATE OF EXAM: 03/02/2022 COMPARISON: NONE CLINICAL HISTORY: 61 years year old Female. ICD-10 CODE: M84.80 OTHER DISORDERS OF CONTINUITY OF SHAMAR E Height: 62 Weight: 162.3 FRAX RISK QUESTIONS: Alcohol (3 or more units per day): NO Family History (Parent hip fracture): NO Glucocorticoids (More than 3mos): NO History of Fracture in Adulthood: YES, ANKLE AND HAND Secondary Osteoporosis: 1. Type 1 Diabetes: NO 2. Hyperthyroidism: NO 3. Menopause before 45: YES 4. Malnutrition: NO 5. Chronic liver disease: NO Rheumatoid Arthritis: NO Current Tobacco Use: NO RISK FACTORS HISTORY OF: Hip Fracture (Right/Left): NO Spine Fracture: NO History of Wrist Fracture: NO Surgery to Spine/Hip(right/left)/Wrist (right/left): NO Family History of Osteoporosis: YES MOTHER Active: NO Diet low in dairy products/other sources of calcium: YES Postmenopausal woman: YES Take estrogen and/or progesterone medications: NO Lost more than 2 inches in height since high school: NO Frequent falls: YES Poor Health: YES Hyperparathyroidism: NO Adrenal Insufficiency: NO MEDICATIONS: Prednisone or other steroids: NO Thyroid Medications: YES Which medication: SYNTHROID How Lon YEARS Osteoporosis Medications: NO Additional Medications: REFLUX MEDS, VIT D, Additional History: PT WAS DIAGNOSED WITH MS 2004. EXAM MEASUREMENTS: Bone mineral densitometry was performed using the [employer] System. Bone mineral density as measured about the Lumbar spine is: ----- L1-L4(G/cm2): 1.020 T Score Values are as follows: ----- L1: -1.5 ----- L2: -1.1 ----- L3: -1.2 ----- L4: -1.7 ----- L1-L4: -1.3 BASELINE STUDY Bone mineral density about the R hip (g/cm2): 0.556 Bone mineral density about the L hip (g/cm2): 0.678 T Score values are as follows: -----R Neck: -3.5 -----L Neck: -2.6 -----R Total: -2.9 -----L Total: -1.7 BASELINE STUDY FRAX%s: The graph provided illustrates a 30.0%chance for a major osteoporotic fx and a 11.6% chance f or the hips probability for fx in 10 years time. IMPRESSION: Osteoporosis NOTE: T-SCORE=SD OF THE YOUNG ADULT MEAN.
--- NOTE | 2022-03-06 10:11 | MM ---
Reason for exam: screening (asymptomatic). Last mammogram was performed 2 years and 4 months ago. History: Patient is postmenopausal. Family history of breast cancer in maternal aunt at age 75. Took estrogen for 6 years 4 months. Physical Findings: A clinical breast exam by your physician is recommended on an annual basis and results should be correlated with mammographic findings. MG 3D Screening Mammo W/Cad Bilateral CC and MLO view(s) were taken. Prior study comparison: November 17, 2019, bilateral MG 3d screening mammo w/cad. March 20, 2017, bilateral MG 3d screening mammo w/cad. There are scattered fibroglandular densities. There is no discrete abnormality. No significant changes when compared with prior studies. ASSESSMENT: Incomplete: need additional imaging evaluation, BI-RAD 0 RECOMMENDATION: Ultrasound of both breasts. Manage on a clinical basis with regard to pain. Ultrasound directed to patient's location of pain. [facility] will attempt to contact patient to return for ultrasound.
== END | disposition home or self-care (01) ==
LOC: RADBDWWP 15:32
PROVIDERS: ATTEND Family Medicine
DX: Z12.31 Encounter for screening mammogram for malignant neoplasm of breast (principal); M81.0 Age-related osteoporosis without current pathological fracture; Z78.0 Asymptomatic menopausal state
CPT/HCPCS: 77063; 77067; 77080

== ENCOUNTER → 2022-03-08 | Outpatient (CLI) | payer MEDICARE ==
--- NOTE | 2022-03-08 12:19 | USB ---
Reason for exam: additional evaluation requested from abnormal screening. History: Patient is postmenopausal. Family history of breast cancer in maternal aunt at age 75. Took estrogen for 6 years 4 months. Physical Findings: A clinical breast exam by your physician is recommended on an annual basis and results should be correlated with mammographic findings. US Breast Workup Limited ALEX Right limited breast ultrasound including focal area of concern, retroareolar and axilla demonstrates no cystic or solid lesion seen. Left limited breast ultrasound including focal area of concern, retroareolar and axilla demonstrates no cystic or solid lesion seen. Results were given to the patient verbally at the time of the exam. ASSESSMENT: Negative, BI-RAD 1 RECOMMENDATION: Return to routine screening mammogram schedule for both breasts. Manage patient on a clinical basis.
== END | disposition home or self-care (01) ==
LOC: RADUSWWP 08:52
PROVIDERS: ATTEND Family Medicine
DX: R92.8 Other abnormal and inconclusive findings on diagnostic imaging of breast (principal); Z78.0 Asymptomatic menopausal state; Z80.3 Family history of malignant neoplasm of breast

== ENCOUNTER 2022-07-29 11:31 | Emergency (ER) | payer MEDICARE ==
[2022-07-29 11:39] VITALS: TEMP 97.8
--- NOTE | 2022-07-29 12:13 | ED ---
Fall HPI - General Chief Complaint: Fall Stated Complaint: fall, rib pain Time Seen by Provider: 07/29/22 11:48 Source: patient, RN notes reviewed Mode of arrival: ambulatory - History of Present Illness Initial Comments: This is a 61-year-old female who presents to the emergency department for pain after a fall 2 weeks ago. Patient states that she has multiple sclerosis and he r right leg started shaking, causing her to fall into the doorway. When she fell, she injured the left arm, shoulder, and ribs. Denies hitting her head or any loss of consciousness. She was not evaluated immediately following this incident. She has had progressive pain since, and states that it is becoming harder to breathe due to the rib pain. Denies any fevers, chills, sore throat, cough, dyspnea, chest pain, palpitations, nausea, vomiting, diarrhea, or headaches. MD Complaint: fall Onset/Timin -: week(s) Fall From: standing Location: chest Location - Extremities: Left: Shoulder, Arm Context: tripped/slipped - Related Data Home Medications Medication Instructions Recorded Confirmed Levothyroxine Sodium [Synthroid] 100 mcg PO QAM 11/26/18 12/02/18 Nabumetone [Relafen] 750 mg PO BID 12/02/18 12/02/18 Previous Rx's Medication Instructions Recorded HYDROcodone/APAP 7.5-325MG [[place] 1 each PO Q6HR PRN #28 tab 11/27/18 7.5] Cyclobenzaprine [Flexeril] 10 mg PO HS 15 Days #15 tab 12/02/18 Allergies Allergy/AdvReac Type Severity Reaction Status Date / Time No Known Allergies Allergy Verified 07/29/22 11:39 Review of Systems ROS Statement: Those systems with pertinent positive or pertinent negative responses have been documented in the HPI. ROS Other: All systems not noted in ROS Statement are negative. Past Medical History Past Medical History: Musculoskeletal Disorder, Thyroid Disorder History of Any Multi-Drug Resistant Organisms: None Reported Past Surgical History: Hysterectomy, Orthopedic Surgery Additional Past Surgical History / Comment(s): ALEX BUNION SX Past Anesthesia/Blood Transfusion Reactions: Postoperative Nausea & Vomiting (PONV) Past Psychological History: No Psychological Hx Reported Smoking Status: Never smoker Past Alcohol Use History: Unable to Obtain, Rare Past Drug Use History: None Reported - Past Family History Mother History Unknown: Yes General Exam Limitations: no limitations General appearance: alert, in no apparent distress Head exam: Present: atraumatic, normocephalic, normal inspection Respiratory exam: Present: normal lung sounds bilaterally. Absent: respiratory distress, wheezes, rales, rhonchi, stridor, chest wall tenderness (There is also no tenderness, step-offs, or ecchymosis) Cardiovascular Exam: Present: regular rate, normal rhythm, normal heart sounds. Absent: systolic murmur, diastolic murmur, rubs, gallop, clicks Extremities exam: Present: other (Full active and passive range of motion of the left arm, however this does induce pain. No obvious deformities, swelling, or ecchymosis.) Neurological exam: Present: alert, oriented X3, CN II-XII intact Psychiatric exam: Present: normal affect, normal mood Skin exam: Present: warm, dry, intact, normal color. Absent: rash Course Vital Signs 07/29/22 07/29/22 11:37 13:37 Temperature 97.8 F Pulse Rate 79 74 Respiratory 20 18 Rate Blood Pressure 146/82 140/85 O2 Sat by Pulse 99 98 Oximetry Medical Decision Making - Medical Decision Making This is a 61-year-old female who presents to the emergency department for pain after a fall. X-rays of the left shoulder, left humerus, and left ribs with AP chest were obtained. All imaging revealed no acute osseous irregularities to suggest a fracture or dislocation. Discussed with the patient that her symptoms are likely related to bruising. Patient states that she did just start steroid infusions for the multiple sclerosis today. Advised that when the steroids begin working, she may notice symptomatic relief from these due to the anti- inflammatory effect. Instructed her to take at least one deep breath an hour to reduce her risk of developing a pneumonia. Suggested applying heat or ice to the areas of pain for additional relief. She'll follow up with her primary care provider to discuss referral to physical therapy or additional workup if symptoms persist. Return precautions reviewed in depth, the patient is instructed to return to the emergency department with any new, worsening, or concerning symptoms. Patient verbalized understanding. This case was discussed in detail with the attending ED physician. Presentation, findings, and treatment plan discussed in detail as well. - Radiology Data Radiology results: report reviewed, image reviewed Disposition Clinical Impression: Fall, Rib pain on left side, Left shoulder pain Disposition: HOME SELF-CARE Instructions (If sedation given, give patient instructions): Shoulder Pain (ED), Rib Contusion (ED) Additional Instructions: Return to the emergency department with any new, worsening, or concerning s ymptoms. Make sure you are taking a deep breath at least once an hour every day to reduce your risk of developing a secondary pneumonia. You may start to notice relief in your symptoms with the steroid infusions. You can also try applying ice or heat to the areas of pain. Follow up with your primary care provider in 1-2 days. Is patient prescribed a controlled substance at d/c from ED?: No Referrals: Ronnell Vivas DO [Primary Care Provider] - 1-2 days
--- NOTE | 2022-07-29 12:51 | XR ---
EXAMINATION TYPE: XR shoulder complete LT DATE OF EXAM: 07/29/2022 12:26 PM INDICATION: Patient age:Female; 61 years old; Reason for study: Pain after fall; COMPARISON: None TECHNIQUE: The left shoulder was examined in AP, internally rotated and scapular Y projections. . FINDINGS: No evidence of acute osseous pathology, joint dislocation, or soft tissue swelling. The remaining por tions of the visualized chest are unremarkable. Os acromiale he is present with downward sloping acromion. IMPRESSION: 1. No acute osseous pathology 2. Downward sloping acromion with an os acromiale which can predispose the patient to rotator tendin opathy
--- NOTE | 2022-07-29 12:53 | XR ---
EXAMINATION TYPE: XR ribs LT w pa chest xray DATE OF EXAM: 07/29/2022 12:26 PM INDICATION: Patient age:Female; 61 years old; Reason for study: Pain after fall; COMPARISON: 10/13/2020 TECHNIQUE: Frontal and oblique views of the left ribs with frontal chest radiograph. FINDINGS: No gross evidence of displaced rib fracture in this slightly limited technique examination. No evidence of fracture. Overall, the lungs are clear. The cardiac silhouette is normal in size. T he remaining osseous structures are intact. Calcification along the costochondral junction. Multileve l disc degeneration changes are present. Right upper quadrant cholecystectomy clips. IMPRESSION RIBS: Slightly limited exam without gross evidence for displaced rib fracture.
--- NOTE | 2022-07-29 12:54 | XR ---
EXAMINATION TYPE: XR humerus LT DATE OF EXAM: 07/29/2022 12:26 PM INDICATION: Patient age:Female; 61 years old; Reason for study: Pain after fall; [facility]. COMPARISON: None TECHNIQUE: The left humerus was examined in AP, internally rotated and axillary projections. FINDINGS: No evidence of acute osseous pathology, joint dislocation, or soft tissue swelling. The rem aining portions of the visualized chest are unremarkable. IMPRESSION: No acute osseous pathology.
[2022-07-29 13:38] VITALS: BP 140/85; PULSE 74; RESP 18
== END 2022-07-29 13:38 | disposition home or self-care (01) ==
LOC: EC 11:31
DX: R07.81 Pleurodynia (principal); M25.512 Pain in left shoulder; G35 Multiple sclerosis; W01.0XXA Fall on same level from slipping, tripping and stumbling without subsequent striking against object, initial encounter
CPT/HCPCS: 99283

== ENCOUNTER → 2022-08-04 | Outpatient (CLI) | payer MEDICARE ==
--- NOTE | 2022-08-05 02:45 | MR ---
EXAMINATION TYPE: MR knee RT wo con DATE OF EXAM: 08/04/2022 COMPARISON: 07/16/2014 HISTORY: Right knee pain, swelling and locking. History of right knee replacement. Multiplanar multiecho imaging of the right knee performed with no contrast. There is considerable metal artifact from the total knee prosthesis. No evidence of focal bone destru ction. The knee prosthesis components appear to be in anatomic position. No evidence of a soft tissue mass. No sign of any significant knee joint effusion. There is mild subcutaneous edema around the kn ee. IMPRESSION: Mild subcutaneous edema. The prosthesis. No fracture seen. No pathologic fluid collection.
== END ==
LOC: RADMRIMAIN 20:30
PROVIDERS: ATTEND Orthopaedic Surgery
DX: M25.361 Other instability, right knee (principal); M25.561 Pain in right knee

== ENCOUNTER → 2022-08-10 | Outpatient (CLI) | payer MEDICARE ==
--- NOTE | 2022-08-10 18:07 | US ---
EXAMINATION TYPE: Ultrasound MSK right knee, lateral DATE OF EXAM: 08/10/2022 Comparison: MRI 08/04/2022 Clinical History: 61-year-old female [id number] OTHER INSTABILITY, RIGHT KNEE TECHNIQUE: Multiple sonographic images of the lateral aspect of the right knee are obtained. Findings: Scanning along the lateral aspect of the knee shows small portions of the underlying femoral and tibi al prosthesis as well as the polyethylene spacer. The iliotibial band insertion is intact. The LCL proper is mildly thickened and heterogeneous suggesting low grade/chronic sprain. The biceps femoris and conjoined tendon insertions onto the fibular head appear intact. There is a small knee joint effusion noted. The extensor mechanism is visualized intact. IMPRESSION: Low-grade or chronic sprain of the proximal to mid LCL proper. The iliotibial band and conjoined tend on insertions appear normal and intact. Underlying knee arthroplasty with a small joint effusion.
== END | disposition home or self-care (01) ==
LOC: RADUSWWP 13:38
PROVIDERS: ATTEND Orthopaedic Surgery
DX: M25.361 Other instability, right knee (principal); M25.461 Effusion, right knee; Z96.651 Presence of right artificial knee joint

== ENCOUNTER 2022-09-11 12:59 | Emergency (ER) | payer MEDICARE ==
[2022-09-11 13:04] VITALS: BP 127/68; PULSE 83; RESP 16; TEMP 97.5
--- NOTE | 2022-09-11 13:20 | ED ---
Skin/Abscess/FB HPI - General Chief complaint: Skin/Abscess/Foreign Body Stated complaint: rash Time Seen by Provider: 09/11/22 13:06 Source: patient, RN notes reviewed Mode of arrival: ambulatory Limitations: no limitations - History of Present Illness Initial comments: Patient is a 61 year old female presenting to the ER with a chief complaint of a rash. Patient states this started about a couple of weeks ago and has been getting worse. Patient has been diagnosed with MS and is receiving infusions. Her last infusion, month ago, was when she noticed the rash. It went away with cortisone and moisturizers but then returned. She reports it is extremely itchy and when she crosses her arms feel like she is cracking her skin open. Patient has tried cortisone cream and moisturizers with no relief, she states everything she has tried has made the rash worse. The rash is located on her chest, neck and bilateral arms. She denies fevers, chills, nightsweats, chest pain or shortness of breath. - Related Data Home Medications Medication Instructions Recorded Confirmed Levothyroxine Sodium [Synthroid] 100 mcg PO QAM 11/26/18 12/02/18 Nabumetone [Relafen] 750 mg PO BID 12/02/18 12/02/18 Previous Rx's Medication Instructions Recorded HYDROcodone/APAP 7.5-325MG [[place] 1 each PO Q6HR PRN #28 tab 11/27/18 7.5] Cyclobenzaprine [Flexeril] 10 mg PO HS 15 Days #15 tab 12/02/18 hydrOXYzine HCL [Atarax] 25 mg PO TID PRN #15 tab 09/11/22 predniSONE 50 mg PO DAILY #5 tab 09/11/22 Allergies Allergy/AdvReac Type Severity Reaction Status Date / Time No Known Allergies Allergy Verified 07/29/22 11:39 Review of Systems ROS Statement: Those systems with pertinent positive or pertinent negative responses have been documented in the HPI. ROS Other: All systems not noted in ROS Statement are negative. Past Medical History Past Medical History: Musculoskeletal Disorder, Thyroid Disorder Additional Past Medical History / Comment(s): MS History of Any Multi-Drug Resistant Organisms: None Reported Past Surgical History: Hysterectomy, Orthopedic Surgery Additional Past Surgical History / Comment(s): ALEX BUNION SX Past Anesthesia/Blood Transfusion Reactions: Postoperative Nausea & Vomiting (PONV) Past Psychological History: No Psychological Hx Reported Smoking Status: Never smoker Past Alcohol Use History: Unable to Obtain, Rare Past Drug Use History: None Reported - Past Family History Mother History Unknown: Yes General Exam Limitations: no limitations General appearance: alert, in no apparent distress Head exam: Present: atraumatic, normocephalic, normal inspection Respiratory exam: Present: normal lung sounds bilaterally. Absent: respiratory distress, wheezes, rales, rhonchi, stridor Cardiovascular Exam: Present: regular rate, normal rhythm, normal heart sounds. Absent: systolic murmur, diastolic murmur, rubs, gallop, clicks Neurological exam: Present: alert, oriented X3, CN II-XII intact Psychiatric exam: Present: normal affect, normal mood Skin exam: Present: rash (erythematous plaque like rash spreading across chest and down bilateral arms ) Course Vital Signs 09/11/22 13:00 Temperature 97.5 F L Pulse Rate 83 Respiratory 16 Rate Blood Pressure 127/68 O2 Sat by Pulse 99 Oximetry Medical Decision Making - Medical Decision Making 61-year-old female presented for rash. Patient has acute dermatitis, eczema type rash. Patient be given started from advise use [id number] Eucerin, Aquaphor or aveeno lotion. Patient was given Atarax for itching return parameters were discussed. Disposition Clinical Impression: Dermatitis, Acute eczema Disposition: HOME SELF-CARE Condition: Stable Instructions (If sedation given, give patient instructions): Dermatitis (ED) Additional Instructions: Please return to the Emergency Department if symptoms worsen or any other concerns. Prescriptions: hydrOXYzine HCL [Atarax] 25 mg PO TID PRN #15 tab PRN Reason: itching predniSONE 50 mg PO DAILY #5 tab Is patient prescribed a controlled substance at d/c from ED?: No Referrals: Ronnell Vivas DO [Primary Care Provider] - 1-2 days Time of Disposition: 13:37
== END 2022-09-11 13:45 | disposition home or self-care (01) ==
LOC: EC 12:59
DX: L30.9 Dermatitis, unspecified (principal); L20.83 Infantile (acute) (chronic) eczema; E03.9 Hypothyroidism, unspecified; Z79.890 Hormone replacement therapy; Z79.899 Other long term (current) drug therapy
CPT/HCPCS: 99282

== ENCOUNTER → 2023-05-14 | Outpatient (CLI) | payer MEDICARE ==
--- NOTE | 2023-05-14 11:28 | XR ---
EXAMINATION TYPE: XR shoulder complete RT DATE OF EXAM: 05/14/2023 CLINICAL HISTORY: pain TECHNIQUE: Three views of the right shoulder are obtained. COMPARISON: None FINDINGS: There is no acute fracture/dislocation evident. The acromioclavicular and glenohumeral julián int spaces appear within normal limits. The visualized ribs are intact and unremarkable. IMPRESSION: 1. There is no acute fracture or dislocation. ICD 10 NO FRACTURE, INITIAL EVALUATION
--- NOTE | 2023-05-14 11:29 | XR ---
EXAMINATION TYPE: XR knee complete RT DATE OF EXAM: 05/14/2023 CLINICAL HISTORY: pain TECHNIQUE: Three views of the right knee are obtained. COMPARISON: None. FINDINGS: There is no acute fracture/dislocation. Total knee arthroplasty is noted to be in place. T he overlying soft tissue appears unremarkable. IMPRESSION: There is no acute fracture or dislocation.ICD 10 NO FRACTURE, INITIAL EVALUATION
--- NOTE | 2023-05-14 11:30 | XR ---
EXAMINATION TYPE: XR ankle complete RT DATE OF EXAM: 05/14/2023 COMPARISON: NONE HISTORY: Pain TECHNIQUE: Frontal, lateral and oblique images of the right ankle are obtained. COMPARISON: None. FINDINGS: There is no acute fracture/dislocation evident. The joint spaces appear within normal serra its. The overlying soft tissue appears unremarkable. IMPRESSION: There is no acute fracture or dislocation seen.
--- NOTE | 2023-05-14 11:31 | XR ---
EXAMINATION TYPE: XR foot complete RT DATE OF EXAM: 05/14/2023 CLINICAL HISTORY: pain TECHNIQUE: Frontal, lateral and oblique images of the right foot are obtained. COMPARISON: None. FINDINGS: There is no acute fracture/dislocation evident. Fusion of the interphalangeal joint great toe. The joint spaces appear within normal limits. The overlying soft tissue appears unremarkable. IMPRESSION: There is no acute fracture or dislocation. ICD 10 NO FRACTURE, INITIAL EVALUATION
== END | disposition home or self-care (01) ==
LOC: RADXRYALE 09:50
PROVIDERS: ATTEND Family Medicine
DX: M25.511 Pain in right shoulder (principal); M25.561 Pain in right knee; M25.571 Pain in right ankle and joints of right foot

== ENCOUNTER → 2024-05-08 | Outpatient (CLI) | payer MEDICARE ==
--- NOTE | 2024-05-08 12:25 | XR ---
Abdomen HISTORY: Lower abdominal pain and swelling for 3 to 4 weeks. COMPARISON: None TECHNIQUE: 3 views of the abdomen were obtained including supine and upright views. LUNGS: Visualized lung bases are clear. No free air beneath the diaphragm. The bowel gas pattern is nonspecific and there is no evidence of obstruction. No suspicious abdominal or pelvic calcifications are seen. There are clips in the right upper quadrant consistent with cholecystectomy. There is a paucity of bowel gas and stool. IMPRESSION: Nonspecific abdomen without evidence of free air or obstruction.
== END | disposition home or self-care (01) ==
LOC: RADXRYALE 11:42
PROVIDERS: ATTEND Physician Assistant Medical
DX: R10.30 Lower abdominal pain, unspecified (principal); R14.0 Abdominal distension (gaseous)
CPT/HCPCS: 74019

== ENCOUNTER 2024-07-17 17:47 | Inpatient (IN) | payer MEDICARE ==
[2024-07-17 17:51] LABS: Glucose,Whole Blood 82 mg/dL (70-110)
--- NOTE | 2024-07-17 18:03 | ED ---
Neuro HPI - General Chief Complaint: Altered Mental Status Stated Complaint: AMS Time Seen by Provider: 07/17/24 17:50 Source: patient, RN notes reviewed, old records reviewed Mode of arrival: EMS Limitations: no limitations - History of Present Illness Is the patient presenting with stroke symptoms?: Yes -: awoke with symptoms Initial Comments: This is a 63-year-old female to the ER for evaluation patient presents today for evaluation of strokelike symptoms and difficulty with speech throughout the day sent those were when patient awoke this morning Location: speech History of same: Yes Place: home Severity: severe Quality: tingling Improves With: none Worsens With: none Associated Symptoms: confusion Treatments Prior to Arrival: none - Related Data Home Medications: Home Medications Medication Instructions Recorded Confirmed Levothyroxine Sodium [Synthroid] 100 mcg PO DAILY 11/26/18 07/18/24 Cephalexin [Keflex] 500 mg PO QID 07/18/24 07/18/24 Escitalopram [Lexapro] 5 mg PO DAILY 07/18/24 07/18/24 Ibandronate Sodium [Boniva] 150 mg PO QMONTHLY 07/18/24 07/18/24 Meloxicam [Mobic] 7.5 mg PO DAILY PRN 07/18/24 07/18/24 Pantoprazole [Protonix] 40 mg PO DAILY PRN 07/18/24 07/18/24 Pramipexole [Mirapex] 0.25 mg PO HS 07/18/24 07/18/24 Silver Sulfadiazine [Silver 1 applic TOPICAL BID 07/18/24 07/18/24 Sulfadiazine 1%] oxyCODONE HCL [OxyIR] 5 mg PO Q4H PRN 07/18/24 07/18/24 traZODone HCL [Desyrel] 50 - 150 mg PO HS PRN 07/18/24 07/18/24 Allergies/Adverse Reactions: Allergies Allergy/AdvReac Type Severity Reaction Status Date / Time clotrimazole Allergy Rash/Hives Verified 07/18/24 10:06 levothyroxine sodium Allergy Rash/Hives Verified 07/18/24 10:06 [From Synthroid] gabapentin AdvReac makes her Verified 07/18/24 10:06 "high" Review of Systems ROS Statement: Those systems with pertinent positive or pertinent negative responses have been documented in the HPI. ROS Other: All systems not noted in ROS Statement are negative. General Exam Limitations: no limitations Stroke MDM - Lab Data Result diagrams: 07/20/24 11:06 07/20/24 11:06 Lab Results 07/17/24 07/17/24 07/17/24 Range/Units 17:50 18:05 18:05 WBC 15.6 H (3.8-10.6) k/uL RBC 4.87 (3.80-5.40) m/uL Hgb 14.3 (11.4-16.0) gm/dL Hct 45.8 (34.0-46.0) % MCV 94.0 (80.0-100.0) fL MCH 29.4 (25.0-35.0) pg MCHC 31.3 (31.0-37.0) g/dL RDW 12.7 (11.5-15.5) % Plt Count 388 (150-450) k/uL MPV 7.0 Neutrophils % 83 % Lymphocytes % 11 % Monocytes % 3 % Eosinophils % 2 % Basophils % 0 % Neutrophils # 13.0 H (1.3-7.7) k/uL Lymphocytes # 1.7 (1.0-4.8) k/uL Monocytes # 0.5 (0-1.0) k/uL Eosinophils # 0.3 (0-0.7) k/uL Basophils # 0.0 (0-0.2) k/uL PT 10.5 (10.0-12.5) sec INR 1.0 (<1.2) APTT 24.2 (22.0-30.0) sec Sodium (137-145) mmol/L Potassium (3.5-5.1) mmol/L Chloride (98-107) mmol/L Carbon Dioxide (22-30) mmol/L Anion Gap mmol/L BUN (7-17) mg/dL Creatinine (0.52-1.04) mg/dL Est GFR (CKD-EPI)AfAm (>60 ml/min/1.73 sqM) Est GFR (CKD-EPI)NonAf (>60 ml/min/1.73 sqM) Glucose (74-99) mg/dL POC Glucose (mg/dL) 82 (70-110) mg/dL POC Glu Plant Propagator ID Danyell Bae Calcium (8.4-10.2) mg/dL Total Bilirubin (0.2-1.3) mg/dL AST (14-36) U/L ALT (4-34) U/L Alkaline Phosphatase (38-126) U/L Creatine Kinase (30-135) U/L Troponin I (0.000-0.034) ng/mL Total Protein (6.3-8.2) g/dL Albumin (3.5-5.0) g/dL 07/17/24 07/17/24 Range/Units 18:05 18:05 WBC (3.8-10.6) k/uL RBC (3.80-5.40) m/uL Hgb (11.4-16.0) gm/dL Hct (34.0-46.0) % MCV (80.0-100.0) fL MCH (25.0-35.0) pg MCHC (31.0-37.0) g/dL RDW (11.5-15.5) % Plt Count (150-450) k/uL MPV Neutrophils % % Lymphocytes % % Monocytes % % Eosinophils % % Basophils % % Neutrophils # (1.3-7.7) k/uL Lymphocytes # (1.0-4.8) k/uL Monocytes # (0-1.0) k/uL Eosinophils # (0-0.7) k/uL Basophils # (0-0.2) k/uL PT (10.0-12.5) sec INR (<1.2) APTT (22.0-30.0) sec Sodium 144 (137-145) mmol/L Potassium 3.9 (3.5-5.1) mmol/L Chloride 110 H (98-107) mmol/L Carbon Dioxide 26 (22-30) mmol/L Anion Gap 8 mmol/L BUN 10 (7-17) mg/dL Creatinine 0.76 (0.52-1.04) mg/dL Est GFR (CKD-EPI)AfAm >90 (>60 ml/min/1.73 sqM) Est GFR (CKD-EPI)NonAf 84 (>60 ml/min/1.73 sqM) Glucose 92 (74-99) mg/dL POC Glucose (mg/dL) (70-110) mg/dL POC Glu Plant Propagator ID Calcium 9.7 (8.4-10.2) mg/dL Total Bilirubin 0.4 (0.2-1.3) mg/dL AST 20 (14-36) U/L ALT 13 (4-34) U/L Alkaline Phosphatase 122 (38-126) U/L Creatine Kinase 76 (30-135) U/L Troponin I <0.012 (0.000-0.034) ng/mL Total Protein 6.4 (6.3-8.2) g/dL Albumin 4.0 (3.5-5.0) g/dL - NIH Stroke Scale 1a. Level of Consciousness: (0) alert 1b. LOC Questions: (0) answers correctly 1c. LOC Commands: (0) performs tasks correctly 2. Best Gaze: (0) normal 3. Visual: (0) no visual loss 4. Facial Palsy: (0) normal symmetrical movement 5a. Motor Arm Left: (0) no drift 5b. Motor Arm Right: (0) no drift 6a. Motor Leg Left: (0) no drift 6b. Motor Leg Right: (0) no drift 7. Limb Ataxia: (0) absent 8. Sensory: (0) normal 9. Best Language: (0) no aphasia 10. Dysarthria: (0) normal 11. Extinction/Inattention: (0) no abnormality - Thrombolytic Inclusion/Exclusion Thrombolytic Exclusion Criteria: Symptom Onset > 4.5 Hours (Patient awoke with symptoms) - Medical Decision Making 63 female will be admitted for CVA suspect possible polypharmacy - Radiology Data Radiology results: report reviewed (CT brain and CTA head neck negative for acute disease), image reviewed - EKG Data -: EKG Interpreted by Me (EKG is sinus bradycardia 56 AR 163 QRS 97 QTc 404) Past Medical History Past Medical History: Musculoskeletal Disorder, Thyroid Disorder Additional Past Medical History / Comment(s): MS History of Any Multi-Drug Resistant Organisms: None Reported Past Surgical History: Hysterectomy, Orthopedic Surgery Additional Past Surgical History / Comment(s): ALEX BUNION SX Past Anesthesia/Blood Transfusion Reactions: Postoperative Nausea & Vomiting (PONV) Past Psychological History: No Psychological Hx Reported Smoking Status: Never smoker Past Alcohol Use History: Unable to Obtain, Rare Past Drug Use History: None Reported - Past Family History Mother History Unknown: Yes Course Vital Signs 07/17/24 07/17/24 07/17/24 17:51 18:15 18:29 Temperature 97.7 F Pulse Rate 58 L 61 60 Pulse Rate [ Pulse Oximetery ] Respiratory 18 18 18 Rate Blood Pressure 149/84 158/98 159/50 Blood Pressure [Left Arm] O2 Sat by Pulse 100 98 97 Oximetry 07/17/24 07/17/24 07/17/24 18:44 18:50 18:59 Temperature Pulse Rate 54 L 52 L 51 L Pulse Rate [ Pulse Oximetery ] Respiratory 14 14 18 Rate Blood Pressure 148/79 148/76 144/97 Blood Pressure [Left Arm] O2 Sat by Pulse 98 98 98 Oximetry 07/17/24 07/17/24 07/17/24 19:14 19:15 19:16 Temperature Pulse Rate 56 L 45 L 52 L Pulse Rate [ Pulse Oximetery ] Respiratory 18 16 14 Rate Blood Pressure 107/56 Blood Pressure [Left Arm] O2 Sat by Pulse 98 100 98 Oximetry 07/17/24 07/17/24 07/17/24 19:41 20:38 22:45 Temperature Pulse Rate 55 L 59 L 85 Pulse Rate [ Pulse Oximetery ] Respiratory 18 18 24 Rate Blood Pressure 105/64 107/56 168/105 Blood Pressure [Left Arm] O2 Sat by Pulse 99 98 100 Oximetry 07/17/24 07/18/24 07/18/24 23:00 01:54 03:49 Temperature Pulse Rate 89 53 L 55 L Pulse Rate [ Pulse Oximetery ] Respiratory 18 20 18 Rate Blood Pressure 189/116 150/85 161/91 Blood Pressure [Left Arm] O2 Sat by Pulse 96 95 100 Oximetry 07/18/24 07/18/24 07/18/24 06:52 08:01 11:30 Temperature Pulse Rate 58 L 61 Pulse Rate [ Pulse Oximetery ] Respiratory 18 16 Rate Blood Pressure 157/76 137/81 Blood Pressure [Left Arm] O2 Sat by Pulse 99 91 L 99 Oximetry 07/18/24 07/18/24 16:38 16:56 Temperature 97.6 F Pulse Rate 60 Pulse Rate [ 68 Pulse Oximetery ] Respiratory 18 18 Rate Blood Pressure 141/72 Blood Pressure 166/81 [Left Arm] O2 Sat by Pulse 95 100 Oximetry - Reevaluation(s) Reevaluation #1: 07/17/24 19:16 Medical records reviewed Code stroke paged on arrival, wake-up stroke Reevaluation #2: 07/17/24 19:16 Patient symptoms improved patient symptoms unchanged still complaining of pain Reevaluation #3: Informed of results and questions answered Reevaluation #4: Was pt. sent in by a medical professional or institution (NELDA Samano, SIGNAL ENGINEER, urgent care, hospital, or half-way...) When possible be specific @ -no Did you speak to anyone other than the patient for history (EMS, parent, family, police, friend...)? What history was obtained from this source @ -no Did you review nursing and triage notes (agree or disagree)? Why? @ -agree Are old charts reviewed (outside hosp., previous admission, EMS record, old EKG, old radiological studies, urgent care reports/EKG's, half-way records)? Report findings @ -yes Differential Diagnosis (chest pain, altered mental status, abdominal pain women, abdominal pain men, vaginal bleeding, weakness, fever, dyspnea, syncope, headache, dizziness, GI bleed, back pain, seizure, CVA, palpatations, mental health, musculoskeletal)? @ -prior EKG interpreted by me (3pts min.). @ -yes X-rays interpreted by me (1pt min.). @ -yes negative for acute disease CT interpreted by me (1pt min.). @ -Yes negative for acute disease U/S interpreted by me (1pt. min.). @ -no What testing was considered but not performed or refused? (CT, X-rays, U/S, labs)? Why? @ -none What meds were considered but not given or refused? Why? @ -none Did you discuss the management of the patient with other professionals (professionals i.e. NELDA Samano, SIGNAL ENGINEER, lab, RT, psych nurse, social work specialist, extension service supervisor, teacher, environmental compliance officer, case manager specialist)? Give summary @ -no Was smoking cessation discussed for >3mins.? @ -no Was critical care preformed (if so, how long)? @ -yes31 Were there social determinants of health that impacted care today? How? (Homelessness, low income, unemployed, alcoholism, drug addiction, transportation, low edu. Level, literacy, decrease access to med. care, residential, rehab)? @ -none Was there de-escalation of care discussed even if they declined (Discuss DNR or withdrawal of care, Hospice)? DNR status @ -no What co-morbidities impacted this encounter? (DM, HTN, Smoking, COPD, CAD, C ancer, CVA, ARF, Chemo, Hep., AIDS, mental health diagnosis, sleep apnea, morbid obesity)? @ -none Was patient admitted / discharged? Hospital course, mention meds given and route, prescriptions, significant lab abnormalities, going to OR and other pertinent info. @ - 63 female will be admitted for CVA suspect possible polypharmacy Admitted Undiagnosed new problem with uncertain prognosis? @ -no Drug Therapy requiring intensive monitoring for toxicity (Heparin, Nitro, Insulin, Cardizem)? @ -no Were any procedures done? @ -no Diagnosis/symptom? @ -CVA versus polypharmacy Acute, or Chronic, or Acute on Chronic? @ -Acute Uncomplicated (without systemic symptoms) or Complicated (systemic symptoms)? @ -Complicated Side effects of treatment? @ -no Exacerbation, Progression, or Severe Exacerbation? @ -exacerbation Poses a threat to life or bodily function? How? (Chest pain, [place], [place], pneumonia, PE, COPD, DKA, ARF, appy, cholecystitis, CVA, Diverticulitis, Homicidal, Suicidal, threat to staff... and all critical care pts) @ -yes extremes of age Reevaluation #5: Differential CVA Ischemic stroke, hemorrhagic stroke, brain tumor, atypical migraine, Wernicke's encephalopathy, seizure, multiple sclerosis, meningitis, encephalitis, hypoglycemia, Guillain-Abdi, electrolytes disturbance, myasthenia gravis.... This is not meant to be an all-inclusive list - Consultations Consultation #1: Spoke with sound who agrees to admit this patient Consultation #2: Spoke with the emergency room on-call who agrees to admit this patient Critical Care Time Critical Care Time: Yes Total Critical Care Time: 31 Disposition Clinical Impression: Altered mental status, CVA (cerebral vascular accident), Drug overdose Disposition: ADMITTED IP TO THIS [facility] Condition: Serious Is patient prescribed a controlled substance at d/c from ED?: No Time of Disposition: 19:10
[2024-07-17 18:14] LABS: Basophils % (A) 0 %; Eosinophils # (A) 0.3 k/uL (0-0.7); Eosinophils % (A) 2 %; HCT 45.8 % (34.0-46.0); HGB 14.3 gm/dL (11.4-16.0); Lymphocytes # (A) 1.7 k/uL (1.0-4.8); Lymphocytes % (A) 11 %; MCH 29.4 pg (25.0-35.0); MCHC 31.3 g/dL (31.0-37.0); Monocytes # (A) 0.5 k/uL (0-1.0); Monocytes % (A) 3 %; Neutrophils % (A) 83 %; Platelet Count 388 k/uL (150-450); RBC 4.87 m/uL (3.80-5.40); RDW 12.7 % (11.5-15.5); WBC 15.6 k/uL (3.8-10.6)
[2024-07-17] MEDS: SODIUM CHLORIDE 0.9% 1,000 ML IV STA (18:20)
[2024-07-17 18:24] LABS: Partial Thromboplastin Time 24.2 sec (22.0-30.0); Prothrombin Time 10.5 sec (10.0-12.5)
--- NOTE | 2024-07-17 18:24 | CT ---
EXAMINATION TYPE: CODE STROKE: CT brain wo contr CT DLP: 2102.6 mGycm, Automated exposure control for dose reduction was used. DATE OF EXAM: 07/17/2024 6:13 PM COMPARISON: None. CLINICAL INDICATION: Female, 63 years old with history of Neuro deficit, acute, stroke suspected, Cod e Stroke, expressive aphasia, confusion. TECHNIQUE: Brain: Axial CT images of the brain were obtained with coronal and sagittal reformats created and rev iewed. Contrast used: None. Oral contrast used: None. FINDINGS: Brain: Extra-axial spaces: No abnormal extra-axial fluid collections. Ventricular system: Within normal limits Cerebral parenchyma: No acute intraparenchymal hemorrhage or mass effect. The stuart-white junction is well differentiated. Cerebellum: Unremarkable. Mass effect: No evidence of midline shift. Intracranial vasculature: Atherosclerotic calcifications of the intracranial vessels. Soft tissues: Normal. Calvarium/osseous structures: No depressed skull fracture. Paranasal sinuses and mastoid air cells: Mild scattered paranasal sinus disease. Visualized orbits: Orbital contents are intact. IMPRESSION: No acute intracranial process. [facility], , 07/17/2024 6:22 PM
[2024-07-17 18:26] LABS: ALT 13 U/L (4-34); AST 20 U/L (14-36); African American GFR (CKD) >90 (>60 ml/min/1.73 sqM); Alkaline Phosphatase 122 U/L (38-126); Anion Gap 8 mmol/L; Blood Urea Nitrogen 10 mg/dL (7-17); Calcium 9.7 mg/dL (8.4-10.2); Carbon Dioxide 26 mmol/L (22-30); Chloride 110 mmol/L (98-107); Creatine Kinase 76 U/L (30-135); Glucose 92 mg/dL (74-99); Non-African American GFR(CKD) 84 (>60 ml/min/1.73 sqM); Potassium 3.9 mmol/L (3.5-5.1); Sodium 144 mmol/L (137-145); Total Bilirubin 0.4 mg/dL (0.2-1.3); Total Protein 6.4 g/dL (6.3-8.2)
[2024-07-17] MEDS: HYDROmorphone 1 MG/ML 1 ML SYRINGE IVP STA (18:39)
--- NOTE | 2024-07-17 18:39 | CT ---
EXAMINATION TYPE: CT angio head neck CT DLP: 443.2 mGycm, Automated exposure control for dose reduction was used. DATE OF EXAM: 07/17/2024 6:23 PM COMPARISON: 07/17/2024. CLINICAL INDICATION: Female, 63 years old with history of Neuro deficit, acute, stroke suspected; PHH , Code Stroke, expressive aphasia, confusion. TECHNIQUE: Axially acquired helical CT angiogram of the head and neck was obtained with contrast. Axi al images are supplemented with 3D reconstructions and MIP images which were post-processed at an in dependent workstation. NASCET criteria used. Contrast used:65 cc mL of Isovue 370 with IV Contrast, Oral contrast used: None. FINDINGS: CTA HEAD: No evidence of acute intracranial hemorrhage, mass effect, or midline shift. The ventricles, sulci, a nd cisterns are unremarkable. The visualized portions of the internal carotid arteries, middle cerebral arteries, anterior cerebral arteries, and posterior cerebral arteries are patent. The basilar and vertebral arteries are patent. CTA NECK: Right Carotid System: The common carotid artery and external carotid artery are patent. The carotid bifurcation demonstrate s no evidence of hemodynamically significant stenosis. The remaining portions of the internal carotid artery demonstrate normal size without significant narrowing. Left Carotid System: The common carotid artery and external carotid artery are patent. The carotid bifurcation demonstrate s no evidence of hemodynamically significant stenosis. The remaining portions of the internal carotid artery demonstrate normal size without significant narrowing. Vertebral arteries are patent without evidence hemodynamically significant stenosis. There is a three-vessel aortic arch. The origins of the great vessels are patent. No evidence of hemo dynamically significant stenosis. IMPRESSION: 1. No evidence of dissection of the cervical internal carotid arteries or vertebral arteries or any e vidence of significant stenosis at the carotid bifurcations. 2. No evidence of intracranial high-grade stenosis or intracranial aneurysm. [facility], , 07/17/2024 6:37 PM
[2024-07-17 19:24] LABS: Appearance,Urine Clear (Clear); Bilirubin,Urine Negative (Negative); Blood,Urine Negative (Negative); Color,Urine Colorless; Glucose,Urine (UA) Negative (Negative); Ketones,Urine Negative (Negative); Leukocyte Esterase,Urine Negative (Negative); Nitrite,Urine Negative (Negative); Protein,Urine Negative (Negative); Specific Gravity,Urine 1.039 (1.001-1.035); Urobilinogen,Urine <2.0 mg/dL (<2.0)
[2024-07-17] MEDS: SODIUM CHLORIDE 0.9% 1,000 ML IV SCH (19:33)
[2024-07-17 19:45] LABS: Amphetamine Screen,Urine Not Detected (NotDetected); Benzodiazepines Screen,Urine Not Detected (NotDetected); Cocaine Screen,Urine Not Detected (NotDetected); Opiate Screen,Urine Not Detected (NotDetected); Phencyclidine Screen,Urine Not Detected (NotDetected); Tricyclic Antidepressant,Urine Not Detected (NotDetected); Urn Cannabinoid Scrn Not Detected (NotDetected)
[2024-07-17 19:46] LABS: Barbiturate Screen,Urine Not Detected (NotDetected); Methadone Screen, Urine Not Detected (NotDetected); Oxycodone Screen, Urine Not Detected (NotDetected)
--- NOTE | 2024-07-17 21:37 | P.HPIM ---
History of Present Illness H&P Date: 07/17/24 Chief Complaint: fall, confusion Patient is a 63-year-old female with hypothyroidism presents to the ED with strokelike symptoms. Patient seen at bedside in ED. History limited due to patient falling in and out of sleep. Per ED note, patient reports she noticed that she had difficulty speaking throughout the day that was apparent as soon as she woke up this morning, which prompted her to come to the ED. Patient is currently confused as to why she is here. Review of systems: Pertinent positives and negatives as discussed in HPI, a complete review of systems was performed and all other systems are negative. Physical examination: Vital: T 97.7 F, HI 59, RR 18, BP 107/56, O2 sat 98% on 2 L nasal cannula General: Patient somnolent but responsive to verbal and painful stimuli, slurred speech, non toxic, no distress, appears at stated age, normal weight Derm: no unusual rashes/lesions, warm Head: atraumatic, normocephalic, symmetric Eyes: EOMI, anicteric sclera, pupils equal round reactive to light ENT: Nose and ears atraumatic Mouth: no lip lesion, mucus membranes moist Cardiovascular: S1S2 reg, no murmur, positive dorsalis pedis pulse bilateral, no edema Lungs: CTA bilateral, no rhonchi, no rales, no accessory muscle use Abdominal: soft, nontender to palpation, no guarding Ext: muscle strength 5 out of 5 in all 4 extremities grossly, no gross muscle atrophy, absent pronator drift Neuro: CN II-XI grossly intact, no gross focal neuro deficits Psych: Alert, oriented to person, confused Assessment/Plan: Patient is a 63-year-old female with hypothyroidism presents to the ED with strokelike symptoms. ED documentation reviewed and case discussed with ED provider. Discussed with patient. The patient is admitted with an anticipated greater than than 2 midnight stay for evaluation of CVA/TIA. #. CVA/TIA NIH stroke score 2 EKG independently interpreted showed sinus bradycardia, rate 58 bpm, QTc [address] showed no evidence of dissection of the cervical internal carotid arteries or vertebral arteries, no significant stenosis at the carotid bifurcations, no evidence of intracranial stenosis or intracranial aneurysm Brain CT showed no acute intracranial process Continue with aspirin 325 mg PO daily Continue with Lipitor 80 mg PO at bedtime Normal saline at 100 cc/HR Lipid panel ordered Brain MRI ordered Ordered echocardiogram Cardiac monitoring Allow for permissive hypertension Neurochecks every 4 hours Fall precautions Garcia catheter in place Swallow study ordered PT/OT consulted Neurology consulted #. Altered mental status Patient currently in and out of sleep with confusion as to why she is here Likely due to CVA/TIA, rule out other causes Continue to monitor glucose for hypoglycemia UA showed no signs of UTI UDS negative of any signs of drug use #. Bradycardia HI borderline around 59 Cardiac monitoring #. Leukocytosis WBC 15.6 No obvious signs of infection, afebrile, likely reactive Follow-up with CBC #. Hypothyroidism Continue home medication of Synthroid once reconciled #. Multiple sclerosis Continue management once reconciled F: NS@100 cc/HR E: Replete electrolytes as needed N: Heart healthy diet A: Fall precaution, PT/OT consulted DVT prophylaxis: Lovenox 40 SQ CODE STATUS: [] Past Medical History Past Medical History: Musculoskeletal Disorder, Thyroid Disorder Additional Past Medical History / Comment(s): MS History of Any Multi-Drug Resistant Organisms: None Reported Past Surgical History: Hysterectomy, Orthopedic Surgery Additional Past Surgical History / Comment(s): ALEX BUNION SX Past Anesthesia/Blood Transfusion Reactions: Postoperative Nausea & Vomiting (PONV) Past Psychological History: No Psychological Hx Reported Smoking Status: Never smoker Past Alcohol Use History: Unable to Obtain, Rare Past Drug Use History: None Reported - Past Family History Mother History Unknown: Yes Medications and Allergies Home Medications Medication Instructions Recorded Confirmed Type Levothyroxine Sodium [Synthroid] 100 mcg PO QAM 11/26/18 12/02/18 History HYDROcodone/APAP 7.5-325MG [[place] 1 each PO Q6HR PRN #28 tab 11/27/18 12/02/18 Rx 7.5] Cyclobenzaprine [Flexeril] 10 mg PO HS 15 Days #15 tab 12/02/18 Rx Nabumetone [Relafen] 750 mg PO BID 12/02/18 12/02/18 History hydrOXYzine HCL [Atarax] 25 mg PO TID PRN #15 tab 09/11/22 Rx predniSONE 50 mg PO DAILY #5 tab 09/11/22 Rx Allergies Allergy/AdvReac Type Severity Reaction Status Date / Time No Known Allergies Allergy Verified 07/17/24 18:01 Physical Exam Vitals: Vital Signs Temp Pulse Resp BP Pulse Ox 07/17/24 20:38 59 L 18 107/56 98 07/17/24 19:41 55 L 18 105/64 99 07/17/24 19:16 52 L 14 98 07/17/24 19:15 45 L 16 107/56 100 07/17/24 19:14 56 L 18 98 07/17/24 18:59 51 L 18 144/97 98 07/17/24 18:50 52 L 14 148/76 98 07/17/24 18:44 54 L 14 148/79 98 07/17/24 18:29 60 18 159/50 97 07/17/24 18:15 61 18 158/98 98 07/17/24 17:51 97.7 F 58 L 18 149/84 100 Intake and Output 07/17/24 07/17/24 07/17/24 06:59 14:59 22:59 Output Total 200 Balance -200 Output: Urine 200 Uretheral (Garcia) 200 Other: Weight 76.702 kg Results CBC & Chem 7: 07/17/24 18:05 07/17/24 18:05 Labs: Abnormal Lab Results - Last 24 Hours (Table) 07/17/24 07/17/24 07/17/24 Range/Units 18:05 18:05 19:13 WBC 15.6 H (3.8-10.6) k/uL Neutrophils # 13.0 H (1.3-7.7) k/uL Chloride 110 H (98-107) mmol/L Ur Specific [place] 1.039 H (1.001-1.035) Assessment and Plan Assessment: I have seen and evaluated the patient today. I Discussed the case with the resident 63-year-old female with hypothyroidism lives with her grandson since yesterday she has been showing some behavioral changes looking more confused sustained a fall circumstances are not clear patient is unable to provide any meaningful hi story patient's son at bedside providing some of the history however he does not live with her. She clearly does not seem normal to have with some increased confusion and delirium with agitated and restless behavior. No report of recent travel or sick contact never had experienced anything similar denies any history of stroke denies any history of seizures. No reported fevers chills upper respiratory infection symptoms cough chest pain or trouble breathing no report of nausea vomiting seizure-like activity or bleeding On examination Patient seems to be confused restless agitated she follows command off-and-on sometimes confused with the commands No neck stiffness Moving all 4 extremities purposefully and spontaneously strength 4 out of 5 throughout no focal neurodeficits. However manifest periodic jerking movement throughout her body Speech seems to be pressured oriented to place and person Lungs are clear to auscultation no wheezing rhonchi or rales Normal S1-S2 regular rate and rhythm no murmurs gallops or rubs no peripheral edema Abdomen soft lax no tenderness to palpation bowel sounds positive I discussed case with ED doctor and accepted the admission for suspected stroke like symptoms with anticipated length of stay more than 2 midnights Acute delirium Rule out meningitis/viral encephalitis Check blood cultures Consider LP ID consult Neuro consult Neurochecks Fall precautions Seizure precautions CT of the brain and CTA head and neck no acute findings Initiate broad-spectrum antibiotics with vancomycin, dosing by pharmacy Rocephin 2 g IV piggyback twice daily Ampicillin 2 g IV piggyback every 4 hours Acyclovir 750 mg every 8 hours IV piggyback Leukocytosis 15.6 afebrile Hemoglobin unremarkable 14.3 Swallow eval PT/OT eval Chronic low back pain Toradol 50 mg IV push every 6 hours as needed Avoid opiates to not mask mental status Hypothyroid resume levothyroxine Check TSH Urine drug screen unremarkable negative Renal function unremarkable sodium 144 potassium 3.9 BUN 10 creatinine 0.7 Full code DVT prophylaxis Lovenox 40 mg subcu daily GI prophylaxis Protonix 40 mg p.o. daily
[2024-07-17] MEDS: ASPIRIN 325 MG TAB PO STA (23:12)
[2024-07-17] MEDS: KETOROLAC 15 MG/ML 1 ML VIAL IVP STA (23:13)
[2024-07-17] MEDS: ATORVASTATIN 80 MG TAB PO SCH (23:13)
[2024-07-18] MEDS ORDERED: VANCOMYCIN IV PER PHARMACY 1 EACH MISC MISCELLANE PRN (00:28)
[2024-07-18] MEDS ORDERED: ACYCLOVIR SODIUM 750 MG in SODIUM CHLORIDE 0.9% 100 ML IVPB SCH (00:45)
[2024-07-18] MEDS: KETOROLAC 15 MG/ML 1 ML VIAL IVP PRN (01:51)
[2024-07-18 03:20] LABS: Basophils % (A) 0 %; Eosinophils # (A) 0.2 k/uL (0-0.7); Eosinophils % (A) 1 %; HCT 43.5 % (34.0-46.0); Lymphocytes # (A) 1.8 k/uL (1.0-4.8); Lymphocytes % (A) 14 %; MCH 30.3 pg (25.0-35.0); MCHC 32.2 g/dL (31.0-37.0); MCV 94.2 fL (80.0-100.0); Mean Platelet Volume 7.7; Monocytes # (A) 0.6 k/uL (0-1.0); Monocytes % (A) 4 %; Neutrophils # (A) 10.3 k/uL (1.3-7.7); Neutrophils % (A) 79 %; Platelet Count 352 k/uL (150-450); RBC 4.62 m/uL (3.80-5.40); RDW 13.2 % (11.5-15.5); WBC 12.9 k/uL (3.8-10.6)
[2024-07-18 03:37] LABS: ALT 14 U/L (4-34); AST 21 U/L (14-36); African American GFR (CKD) >90 (>60 ml/min/1.73 sqM); Alkaline Phosphatase 130 U/L (38-126); Blood Urea Nitrogen 10 mg/dL (7-17); Calcium 9.5 mg/dL (8.4-10.2); Carbon Dioxide 27 mmol/L (22-30); Glucose 95 mg/dL (74-99); Magnesium 2.2 mg/dL (1.6-2.3); Non-African American GFR(CKD) >90 (>60 ml/min/1.73 sqM); Total Bilirubin 0.6 mg/dL (0.2-1.3); Total Protein 6.3 g/dL (6.3-8.2)
[2024-07-18] MEDS: AMPICILLIN 2,000 MG in SODIUM CHLORIDE 0.9% 100 ML IVPB SCH (03:47)
[2024-07-18 03:50] LABS: Anion Gap 6 mmol/L
[2024-07-18 04:25] LABS: Chloride 109 mmol/L (98-107); Potassium 4.5 mmol/L (3.5-5.1); Sodium 139 mmol/L (137-145)
[2024-07-18 05:15] LABS: T4, Free (Free Thyroxine) 0.36 ng/dL (0.78-2.19)
[2024-07-18] MEDS: ACYCLOVIR SODIUM 750 MG in SODIUM CHLORIDE 0.9% 250 ML IVPB SCH (05:59)
[2024-07-18] MEDS: HYDROcodone/APAP 5-325MG 1 EACH TAB PO STA (06:49)
[2024-07-18] MEDS: LEVOTHYROXINE 100 MCG TAB PO SCH (06:52)
[2024-07-18] MEDS: VANCOMYCIN 1,500 MG in SODIUM CHLORIDE 0.9% 500 ML 500 ML IVPB SCH (09:43)
[2024-07-18 09:44] LABS: Chol/HDL Ratio 3.57 Ratio; LDL Cholesterol,Calculated 99.8 mg/dL (0.0-131.0)
--- NOTE | 2024-07-18 09:49 | CA ---
Transthoracic Echo Report Name: Charleen Brody Age: 63 Gender: F : 1960 Exam Date: 07/18/2024 07:55 Exam Location: [place] [facility] Ht (in): 66 Wt (lb): 169 Ordering Physician: Caterina Barnard MD Attending/Referring Phys: [employer]argo [employer] Mechanic Afua Topete RDCS Procedure CPT: Indications: CVA/TIA Cardiac Hx: Technical Quality: Good Contrast 1: Total Dose (mL): Contrast 2: Total Dose (mL): MEASUREMENTS (Male / Female) Normal Values 2D ECHO LV Diastolic Diameter PLAX 4.3 cm 4.2 - 5.9 / 3.9 - 5.3 cm LV Systolic Diameter PLAX 2.7 cm IVS Diastolic Thickness 0.7 cm 0.6 - 1.0 / 0.6 - 0.9 cm LVPW Diastolic Thickness 0.8 cm 0.6 - 1.0 / 0.6 - 0.9 cm LV Relative Wall Thickness 0.4 RV Internal Dim ED PLAX 3.0 cm LA Systolic Diameter LX 3.3 cm 3.0 - 4.0 / 2.7 - 3.8 cm LV Diastolic Volume MOD 4C 55.0 cm??? LV Systolic Volume MOD 4C 23.2 cm??? LV Ejection Fraction MOD 4C 57.7 % LV Cardiac Index MOD 4C 1032.8 cm???/min???m??? LV Diastolic Length 4C 6.8 cm LV Systolic Length 4C 5.8 cm LV Diastolic Volume MOD 2C 82.1 cm??? LV Systolic Volume MOD 2C 33.8 cm??? LV Ejection Fraction MOD 2C 58.9 % LV Cardiac Index MOD 2C 1571.9 cm???/min???m??? LV Diastolic Length 2C 7.8 cm LV Systolic Length 2C 6.1 cm M-MODE Aortic Root Diameter MM 3.0 cm AV Cusp Separation MM 1.8 cm DOPPLER AV Peak Velocity 170.7 cm/s AV Peak Gradient 11.7 mmHg Mitral E Point Velocity 111.7 cm/s Mitral A Point Velocity 82.1 cm/s Mitral E to A Ratio 1.4 MV Deceleration Time 206.2 ms MV E' Velocity 8.7 cm/s Mitral E to MV E' Ratio 12.8 TR Peak Velocity 234.8 cm/s TR Peak Gradient 22.1 mmHg Right Ventricular Systolic Press 36.0 mmHg FINDINGS Left Ventricle Left ventricular ejection fraction is estimated at 55-60 %. Left ventricular cavity size normal. Left ventricular wall thickness normal. Normal left ventricular wall motion. Right Ventricle Normal right ventricular size and function. Mild pulmonary hypertension. Right Atrium Normal right atrial size. No right atrial thrombus or mass seen. Left Atrium Normal left atrial size. No left atrial thrombus or mass present. Mitral Valve Structurally normal mitral valve. Trace to mild mitral regurgitation. Aortic Valve Trileaflet aortic valve. Aortic valve sclerosis. No aortic valve stenosis or regurgitation. Tricuspid Valve Structurally normal tricuspid valve. Mild tricuspid regurgitation. Pulmonic Valve Structurally normal pulmonic valve. No pulmonic regurgitation. Pericardium No pericardial or pleural effusion. Aorta Normal size aortic root and proximal ascending aorta. CONCLUSIONS Diagnosis: CVA evaluate for any intracardiac masses or thrombi Preserved LV and RV size and function No significant valvular abnormalities No intracardiac masses Previewed by: Dr. Sumeet Childers MD (Electronically Signed) Final Date: 18 July 2024 09:47
[2024-07-18] MEDS: ASPIRIN 325 MG TAB PO SCH (09:57)
[2024-07-18] MEDS ORDERED: MELOXICAM 7.5 MG TAB PO PRN (11:08)
[2024-07-18] MEDS ORDERED: traZODone HCL 50 MG TAB PO PRN (11:08)
--- NOTE | 2024-07-18 11:15 | P.PN ---
Subjective Progress Note Date: 07/18/24 Patient is a 63-year-old female with a past medical history of hypothyroidism, anxiety and depression, restless leg syndrome, chronic back pain and GERD who was brought in by grandson for evaluation of altered mental status. Stroke workup was initiated in the ED. CTA head and neck showed no significant stenosis. Brain CT showed no acute process. Patient was admitted for stroke workup. Patient was also empirically started on IV antibiotics and antiviral for possible meningitis. Patient was seen in the morning. Her mental status had improved. Patient did state that she took an extra dose of her oxycodone because of her intractable back pain. I believe her altered mental status is likely due to overdose on her pain meds. Patient denying any neck stiffness photophobia and also did not have any fevers so I discontinued the antibiotics. Patient's TSH was 36 and T4 was 0.36. Patient states that she ran out of her thyroid medication and believes that she has not taken it for 7 days or maybe even longer. Besides bradycardia patient has no other signs of myxedema coma. Patient seen this morning. She is awake and alert. As soon as I walked in the room patient said I did not overdose on my pain meds. She then admitted that she took an extra pill of her oxycodone because of intractable back pain. Patient denied any photophobia, neck stiffness or fevers. Physical exam General examination - Alert and Oriented 3 in NAD Heart - + S1S2 no murmurs Lungs - Clear to auscultation Abdomen soft NT ND +ve BS Extremities - No edema, left foot with burn wound and no signs of infection [employer] - Moving all 4 extremities spontaneously Psych - Calm and cooperative Assessment and plan Acute toxic metabolic encephalopathy secondary to overdose on pain medication and also hypothyroidism. Patient mentation has improved Patient was counseled on taking her pain meds as prescribed and patient was also counseled on medication compliance with her thyroid medication. Neurology was consulted in the ED to rule out stroke I do not believe further stroke workup is needed but will defer to neurology Echocardiogram was done as part of stroke workup and did not show any significant valvular abnormalities and showed preserved LV function Hypothyroidism Patient's TSH 36 and T4 is 0.36. Patient states that she was noncompliant with her thyroid medications because she ran out of it. Will resume her home dose of levothyroxine 100 mcg daily I do not suspect myxedema coma as patient does not have hypothermia, hypotension and hyponatremia. She only has bradycardia. Sinus bradycardia Asymptomatic No further workup Echo results as above Leukocytosis likely reactive Improving. WBC 12.9 this morning History of multiple sclerosis Stable Anxiety and depression Continue Lexapro Chronic back pain Since mental status has improved I will resume her oxycodone 5 mg p.o. every 4 hours as needed and meloxicam 7.5 mg p.o. daily as needed Left foot burn with no signs of infection Continue with Silvadene cream DVT prophylaxis: SC heparin Objective - Vital Signs Vital signs: Vital Signs Temp 97.7 F 07/17/24 17:51 Pulse 58 L 07/18/24 06:52 Resp 18 07/18/24 06:52 BP 157/76 07/18/24 06:52 Pulse Ox 91 L 07/18/24 08:01 FiO2 Intake & Output 07/17/24 07/18/24 07/18/24 18:59 06:59 18:59 Output Total 200 Balance -200 Weight 76.702 kg Output: Urine 200 Uretheral (Garcia) 200 - Labs CBC & Chem 7: 07/18/24 02:27 07/18/24 02:27 Labs: Abnormal Lab Results - Last 24 Hours (Table) 07/17/24 07/17/24 07/17/24 Range/Units 18:05 18:05 19:13 WBC 15.6 H (3.8-10.6) k/uL Neutrophils # 13.0 H (1.3-7.7) k/uL Chloride 110 H (98-107) mmol/L Alkaline Phosphatase (38-126) U/L Triglycerides (0.00-149.00) mg/dL TSH (0.465-4.680) mIU/L Free T4 (0.78-2.19) ng/dL Ur Specific [place] 1.039 H (1.001-1.035) 07/18/24 07/18/24 Range/Units 02:27 02:27 WBC 12.9 H (3.8-10.6) k/uL Neutrophils # 10.3 H (1.3-7.7) k/uL Chloride 109 H (98-107) mmol/L Alkaline Phosphatase 130 H (38-126) U/L Triglycerides 156.00 H (0.00-149.00) mg/dL TSH 36.000 H (0.465-4.680) mIU/L Free T4 0.36 L (0.78-2.19) ng/dL Ur Specific [place] (1.001-1.035)
--- NOTE | 2024-07-18 15:31 | P.CNNES ---
History of Present Illness Consult date: 07/18/24 Requesting physician: Pineda Sanches Reason for Consult: CVA History of Present Illness: Patient is a 63-year-old female came to the hospital by ambulance yesterday () at 5:47 PM for altered mental status. Patient provided with a history, and patient's son also arrived later, and he also provided additional information. Patient states that yesterday she took gabapentin for back pain, as she has run out of her oxycodone since Sunday, 2 days prior to arrival. Patient states that she is allergic to gabapentin, it makes her "high". Patient states that she took the medication around 7:30 PM, when I told her that she arrived to the hospital at 5:47 PM. She then said that she took it at around 4 PM and she had side effect from it. Apparently her grandson could not wake her up. At present she states that she is doing fine, denies any headache no dizziness. Patient's son mentioned that she fell Sunday night and twice yesterday on . Patient's grandson Giovanni who was with the patient felt that patient took too many oxycodone. Patient states that she takes oxycodone every 4 hours, 6 a day. Then she changed her statement saying that she is taking oxycodone 3 times a day. She gets prescription of oxycodone 120 tablets/month. Last on 07/10/2024, patient accidentally burned her dorsum of the left foot, and went to urgent care where she was given Silvadene. Her foot was hurting, therefore she started taking oxycodone 10 mg tablets, and she said she had 10 tablets of oxycodone 10 mg left from a year ago. Then she changed her statement, said only 4 tablets were left from her discharge medications from her knee surgery on 02/18/2023. In any case, she ran out of her oxycodone on Sunday. I suspect she may be having opiate withdrawal, and perhaps some side effect of gabapentin. She also has prescription of trazodone 50 mg tablet and she can take up to 3 tablets of trazodone. The other night she could not sleep therefore she took 3 tablets of trazodone. Patient also mentions that she ran out of her thyroid medication 7 days ago. Patient's son mentions that she was brought to the hospital because her speech was very incoherent, her eyes were bulging and she was having some continuous involuntary movement of her upper extremities. As per EMS flowsheet when they arrived to the patient's residence, patient was sitting in a chair. She is alert and conversive with no observable distress. Patient was noticed to be confused with repetitive statements and difficulty to progress in conversation from 1 subject to another. Her speech was clear and articulate. EMS noted non-purposeful movement to both arms and hands. Grandson mentioned that there is difficulty in conversation, constant motion of both hands is not normal for her. Family mentioned that last known well was last p.m. when she went to bed about 10:30 PM and when he woke up at around 8 AM today, he noticed patient was acting like this. He mentioned that patient did fall once today without injury. Family mentioned that patient on occasion accidentally had overdosed on her pain medications. She never had any stroke and has never acted like this that he is aware of. Patient states that last night she took 2 oxycodone but has not taken any today. Pupils are equal, round and reacting. Patient's vitals at the scene was blood pressure 170 systolic, diastolic not reported. Pulse rate 80 respiration 15 saturation 98% temperature 98.3. Blood glucose 88. Blood tests shows WBC 15.6 hemoglobin 14.3 normal platelets. PT PTT normal. CMP is normal. Troponin negative. UA negative, urine drug screen negative. TSH is elevated 36, free T40.36. EKG showed sinus bradycardia. CT head showed no acute intracranial process. I personally reviewed CT head, agree with the findings. Patient states that she was diagnosed with MS in 2004. She was placed on Copaxone, but it produced "craters" in her arms and legs, therefore she stopped taking it in less than 1 year. Her MS was stable, although recently the disease activity increased, therefore she was seen at [facility] in [place], she was given Ocrevus and after 2 doses, she felt very sick therefore she stopped taking it. A different medication was recommended but she never took it. Patient states that she follows up with Dr Lowery, but later said that she was diagnosed MS with this neurologist. Now she follows up with Dr. Franklin at [facility]. She mainly follows up with his PA Dr. Giordano. Home medications include levothyroxine, Boniva, Lexapro, trazodone 50 to 150 mg at bedtime as needed. Mobic 7.5 mg, Mirapex 0.25 mg at bedtime, oxycodone 5 mg every 4 hours as needed Keflex and Protonix. Patient denies any alcohol or marijuana. She had smoked 1 pack/day since age 18, quit in 2004 when she was diagnosed with MS. Denies hypertension, diabetes or hyperlipidemia. She does have hypothyroidism. Review of Systems All pertinent positive and negatives mentioned in HPI. Otherwise negative. Past Medical History Past Medical History: Musculoskeletal Disorder, Thyroid Disorder Additional Past Medical History / Comment(s): MS History of Any Multi-Drug Resistant Organisms: None Reported Past Surgical History: Hysterectomy, Orthopedic Surgery Additional Past Surgical History / Comment(s): AELX BUNION SX Past Anesthesia/Blood Transfusion Reactions: Postoperative Nausea & Vomiting (PONV) Past Psychological History: No Psychological Hx Reported Smoking Status: Never smoker Past Alcohol Use History: Unable to Obtain, Rare Past Drug Use History: None Reported - Past Family History Mother History Unknown: Yes Medications and Allergies Home Medications Medication Instructions Recorded Confirmed Type Levothyroxine Sodium [Synthroid] 100 mcg PO DAILY 11/26/18 07/18/24 History Cephalexin [Keflex] 500 mg PO QID 07/18/24 07/18/24 History Escitalopram [Lexapro] 5 mg PO DAILY 07/18/24 07/18/24 History Ibandronate Sodium [Boniva] 150 mg PO QMONTHLY 07/18/24 07/18/24 History Meloxicam [Mobic] 7.5 mg PO DAILY PRN 07/18/24 07/18/24 History Pantoprazole [Protonix] 40 mg PO DAILY PRN 07/18/24 07/18/24 History Pramipexole [Mirapex] 0.25 mg PO HS 07/18/24 07/18/24 History Silver Sulfadiazine [Silver 1 applic TOPICAL BID 07/18/24 07/18/24 History Sulfadiazine 1%] oxyCODONE HCL [OxyIR] 5 mg PO Q4H PRN 07/18/24 07/18/24 History traZODone HCL [Desyrel] 50 - 150 mg PO HS PRN 07/18/24 07/18/24 History Allergies Allergy/AdvReac Type Severity Reaction Status Date / Time clotrimazole Allergy Rash/Hives Verified 07/18/24 10:06 levothyroxine sodium Allergy Rash/Hives Verified 07/18/24 10:06 [From Synthroid] gabapentin AdvReac makes her Verified 07/18/24 10:06 "high" Physical Examination - Vital Signs Vital Signs: Vital Signs Temp Pulse Resp BP Pulse Ox 07/18/24 11:30 61 16 137/81 99 07/18/24 08:01 91 L 07/18/24 06:52 58 L 18 157/76 99 07/18/24 03:49 55 L 18 161/91 100 07/18/24 01:54 53 L 20 150/85 95 07/17/24 23:00 89 18 189/116 96 07/17/24 22:45 85 24 168/105 100 07/17/24 20:38 59 L 18 107/56 98 07/17/24 19:41 55 L 18 105/64 99 07/17/24 19:16 52 L 14 98 07/17/24 19:15 45 L 16 107/56 100 07/17/24 19:14 56 L 18 98 07/17/24 18:59 51 L 18 144/97 98 07/17/24 18:50 52 L 14 148/76 98 07/17/24 18:44 54 L 14 148/79 98 07/17/24 18:29 60 18 159/50 97 07/17/24 18:15 61 18 158/98 98 07/17/24 17:51 97.7 F 58 L 18 149/84 100 Intake and Output 07/17/24 07/18/24 07/18/24 22:59 06:59 14:59 Output Total 200 300 Balance -200 -300 Output: Urine 200 300 Uretheral (Garcia) 200 Other: Weight 76.702 kg Patient is an elderly female, in no acute distress. Patient appears slightly hyper, slightly delirious possible. She changes her statement, somewhat fluctuating thoughts. Patient is alert awake oriented to time place and person. She knows it is 07/17/2024 (actually 07/18/2024) speech and language functions are normal. Patient can name and repeat very well. No aphasia or dysarthria. Attention, c oncentration is slightly impaired and fund of knowledge is slightly limited. Detailed cognitive function testing was deferred. On cranial nerve examination, pupils are equal, round and reacting to light, visual [place] are full on confrontation, with no neglect on double simultaneous stimulation. Extraocular muscles are intact with no nystagmus. Face is symmetric, tongue protrudes to the midline. Palatal elevation and sensation normal, hearing and shoulder shrug normal, facial sensation normal. On muscle strength testing, there is no pronator drift and the strength is normal in arms and legs distally and proximally. Deep tendon reflexes are symmetric 1+ in the arms and legs. Sensory to touch is equal with no neglect on double simultaneous stimulation. Cerebellar function showed no ataxia for [id number] testing. No dysdiadochokinesia. No ataxia for [id number] testing on either side. Tone and bulk of muscles normal. Gait deferred.. On general examination, there is no carotid bruit or murmur, S1-S2 audible. Chest is clear on consultation. Abdomen is soft nontender. No organomegaly, bowel sounds present. Peripheral pulses are present. No peripheral edema. Results - Laboratory Findings CBC and BMP: 07/18/24 02:27 07/18/24 02:27 Abnormal Lab Findings: Abnormal Labs 07/17/24 07/17/24 07/17/24 18:05 18:05 19:13 WBC 15.6 H Neutrophils # 13.0 H Chloride 110 H Alkaline Phosphatase Triglycerides TSH Free T4 Ur Specific [place] 1.039 H 07/18/24 07/18/24 02:27 02:27 WBC 12.9 H Neutrophils # 10.3 H Chloride 109 H Alkaline Phosphatase 130 H Triglycerides 156.00 H TSH 36.000 H Free T4 0.36 L Ur Specific [place] Assessment and Plan Assessment: * Altered mental status, likely due to acute delirium from polypharmacy. Patient was taking too many pain medications including her current prescription of oxycodone 5 mg, and also took some extra tablets of oxycodone 10 mg which were leftover from her previous knee surgery on 02/18/2023. Then she ran out of opiates 2 days prior to arrival. Patient took extra tablets of trazodone, to help sleep, took gabapentin to which she believes that she is allergic to and also had ran out of her thyroid medications for last 7 days. Patient is completely confused about her medications, and self-medicating herself. This likely resulted in delirium, questionable overdose versus withdrawal. * Hypothyroidism. Patient claims that she had ran out of her thyroid replace ment medication for the last 7 days. * Multiple sclerosis * History of right knee surgery * Ex tobacco use Plan: * Patient's altered mental status is likely from delirium due to mixing up with medications, taking too many some medication, and then running out of hide examination is completely nonfocal. Some other medications. * 2-D echo revealed preserved LV and RV size and systolic function with LVEF 55 to 60%. Normal left and right atrial size. No thrombus. No valvular abnormalities. No intracardiac masses. * CTA head and neck showed: No evidence of dissection of the cervical internal carotid arteries or vertebral arteries or any evidence of significant stenosis at the carotid bifurcations. No evidence of intracranial high-grade stenosis or intracranial aneurysm. * Fasting a.m. lipid panel with cholesterol 182, LDL 99, HDL 51, triglycerides 156. Patient states she takes Lipitor, although her home medications does not list about statins. * Optimize control of blood pressure. * Continue aspirin 81 mg daily. * B12, folate. * Patient may need supervision by family member to make sure she takes medications correctly. * No other neurological workup indicated. Neurologically clear otherwise. Thank you for the consult.
[2024-07-18] MEDS: HEPARIN SODIUM,PORCINE 5,000 UNIT/ML 1 ML VIAL SQ SCH (20:57)
[2024-07-18] MEDS: PRAMIPEXOLE 0.25 MG TAB PO SCH (20:57)
--- NOTE | 2024-07-18 23:12 | P.CONS ---
History of Present Illness - Reason for Consult Consult date: 07/18/24 Meningitis Requesting physician: Jg Tafoya - Chief Complaint Mental status changes x 1 day - History of Present Illness Patient is a 63-year-old female with a past medical history significant for hypothyroidism MS osteoarthritis patient has been brought into the hospital for evaluation of decreased level of responsiveness and difficulty with speech patient mention she has been taking [place] for pain however she ran out of her medication and take to some Neurontin that has make her too sleepy her grandson was not able to wake her up who subsequently brought the patient to the ER for further evaluation on presentation to the hospital the patient was a febrile and no fever have been found subsequently patient was not tachycardic hypotensive or hypoxic patient did have elevated white count 15.6 with a left shift creatinine has been normal electrolytes are normal liver enzymes are normal urine has been negative influenza RSV COVID testing was negative urine drug screen was negative patient did have CT of the brain negative for any bleed with concern for meningitis/encephalitis she was started on acyclovir vancomycin and Rocephin that has been discontinued subsequently this morning infectious was consulted last night for further management of antibiotic therapy. Patient at time my evaluation on 07/18/2024 is back to her baseline the patient is awake and alert she knows that she is at [facility] denies any headache or photophobia. Slight nausea and episode of vomiting but no abdominal pain no diarrhea no urinary symptoms Review of Systems Positive point and negatives has been mentioned in the HPI, complete review of systems was performed and all other systems are negative Past Medical History Past Medical History: Musculoskeletal Disorder, Thyroid Disorder Additional Past Medical History / Comment(s): MS History of Any Multi-Drug Resistant Organisms: None Reported Past Surgical History: Hysterectomy, Orthopedic Surgery Additional Past Surgical History / Comment(s): ALEX BUNION SX Past Anesthesia/Blood Transfusion Reactions: Postoperative Nausea & Vomiting (PONV) Past Psychological History: No Psychological Hx Reported Smoking Status: Never smoker Past Alcohol Use History: Unable to Obtain, Rare Past Drug Use History: None Reported - Past Family History Mother History Unknown: Yes Medications and Allergies Home Medications Medication Instructions Recorded Confirmed Type Levothyroxine Sodium [Synthroid] 100 mcg PO DAILY 11/26/18 07/18/24 History Cephalexin [Keflex] 500 mg PO QID 07/18/24 07/18/24 History Escitalopram [Lexapro] 5 mg PO DAILY 07/18/24 07/18/24 History Ibandronate Sodium [Boniva] 150 mg PO QMONTHLY 07/18/24 07/18/24 History Meloxicam [Mobic] 7.5 mg PO DAILY PRN 07/18/24 07/18/24 History Pantoprazole [Protonix] 40 mg PO DAILY PRN 07/18/24 07/18/24 History Pramipexole [Mirapex] 0.25 mg PO HS 07/18/24 07/18/24 History Silver Sulfadiazine [Silver 1 applic TOPICAL BID 07/18/24 07/18/24 History Sulfadiazine 1%] oxyCODONE HCL [OxyIR] 5 mg PO Q4H PRN 07/18/24 07/18/24 History traZODone HCL [Desyrel] 50 - 150 mg PO HS PRN 07/18/24 07/18/24 History Allergies Allergy/AdvReac Type Severity Reaction Status Date / Time clotrimazole Allergy Rash/Hives Verified 07/18/24 10:06 levothyroxine sodium Allergy Rash/Hives Verified 07/18/24 10:06 [From Synthroid] gabapentin AdvReac makes her Verified 07/18/24 10:06 "high" Physical Exam Vitals: Vital Signs Temp Pulse Resp BP Pulse Ox 07/18/24 08:01 91 L 07/18/24 06:52 58 L 18 157/76 99 07/18/24 03:49 55 L 18 161/91 100 07/18/24 01:54 53 L 20 150/85 95 07/17/24 23:00 89 18 189/116 96 07/17/24 22:45 85 24 168/105 100 07/17/24 20:38 59 L 18 107/56 98 07/17/24 19:41 55 L 18 105/64 99 07/17/24 19:16 52 L 14 98 07/17/24 19:15 45 L 16 107/56 100 07/17/24 19:14 56 L 18 98 07/17/24 18:59 51 L 18 144/97 98 07/17/24 18:50 52 L 14 148/76 98 07/17/24 18:44 54 L 14 148/79 98 07/17/24 18:29 60 18 159/50 97 07/17/24 18:15 61 18 158/98 98 07/17/24 17:51 97.7 F 58 L 18 149/84 100 Intake and Output 07/17/24 07/18/24 07/18/24 22:59 06:59 14:59 Output Total 200 Balance -200 Output: Urine 200 Uretheral ([place]) 200 Other: Weight 76.702 kg GENERAL DESCRIPTION: Middle-aged female lying in bed, no distress. No tachypnea or accessory muscle of respiration use. HEENT: Shows Pallor , no scleral icterus. Oral mucous membrane is dry. No pharyngeal erythema or thrush NECK: Trachea central, no thyromegaly. LUNGS: Unlabored breathing. Clear to auscultation anteriorly. No wheeze or crackle. HEART: S1, S2, regular rate and rhythm. No loud murmur ABDOMEN: Soft, no tenderness , guarding or rigidity, no organomegaly EXTREMITIES: No edema of feet. SKIN: No rash, no masses palpable. NEUROLOGICAL: The patient is awake, alert, oriented x3, mood and affect normal. No signs of meningeal irritation Results CBC & Chem 7: 07/18/24 02:27 07/18/24 02:27 Labs: Abnormal Lab Results - Last 24 Hours (Table) 07/17/24 07/17/24 07/17/24 Range/Units 18:05 18:05 19:13 WBC 15.6 H (3.8-10.6) k/uL Neutrophils # 13.0 H (1.3-7.7) k/uL Chloride 110 H (98-107) mmol/L Alkaline Phosphatase (38-126) U/L Triglycerides (0.00-149.00) mg/dL TSH (0.465-4.680) mIU/L Free T4 (0.78-2.19) ng/dL Ur Specific [place] 1.039 H (1.001-1.035) 07/18/24 07/18/24 Range/Units 02:27 02:27 WBC 12.9 H (3.8-10.6) k/uL Neutrophils # 10.3 H (1.3-7.7) k/uL Chloride 109 H (98-107) mmol/L Alkaline Phosphatase 130 H (38-126) U/L Triglycerides 156.00 H (0.00-149.00) mg/dL TSH 36.000 H (0.465-4.680) mIU/L Free T4 0.36 L (0.78-2.19) ng/dL Ur Specific [place] (1.001-1.035) Assessment and Plan (1) Leukocytosis Current Visit: Yes Status: Acute Code(s): D72.829 - ELEVATED WHITE BLOOD CELL COUNT, UNSPECIFIED SNOMED Code(s): 203511806 (2) Altered mental status Current Visit: Yes Status: Acute Code(s): R41.82 - ALTERED MENTAL STATUS, UNSPECIFIED SNOMED Code(s): 190742260 Plan: 1patient with mental status changes possibly related to Neurontin clinically not behaving as encephalitis or meningitis and no need for LP 2-leukocytosis questionably reactive as currently no obvious focus of infection did have a negative UA chest is clear to auscultation no evidence of any cellulitis or abdominal wall tenderness 3-patient antibiotic has been discontinued by the medical team we will monitor the patient closely off antibiotic therapy 4-we will repeat a CBC and inflammatory markers with a.m. lab We will follow on clinical condition and cultures to further adjust medication if needed Thank you for this consultation we will follow the patient along with you Dictation was produced using [employer] dictation software. please excuse any grammatical, word or spelling errors. Time with Patient: Greater than 30
[2024-07-19] MEDS: diphenhydrAMINE 25 MG CAP PO STA (01:15)
[2024-07-19] MEDS: PANTOPRAZOLE 40 MG TABLET PO SCH (06:09)
[2024-07-19] MEDS: LEVOTHYROXINE 100 MCG PO SCH (06:12)
[2024-07-19 06:44] LABS: Basophils # (A) 0.1 k/uL (0-0.2); Basophils % (A) 0 %; Eosinophils # (A) 0.7 k/uL (0-0.7); Eosinophils % (A) 3 %; HCT 44.3 % (34.0-46.0); HGB 14.3 gm/dL (11.4-16.0); Lymphocytes # (A) 2.8 k/uL (1.0-4.8); Lymphocytes % (A) 14 %; MCH 30.5 pg (25.0-35.0); MCHC 32.3 g/dL (31.0-37.0); MCV 94.2 fL (80.0-100.0); Mean Platelet Volume 8.5; Monocytes # (A) 0.8 k/uL (0-1.0); Monocytes % (A) 4 %; Neutrophils # (A) 15.9 k/uL (1.3-7.7); Neutrophils % (A) 78 %; Platelet Count 328 k/uL (150-450); RDW 13.5 % (11.5-15.5); WBC 20.4 k/uL (3.8-10.6)
[2024-07-19 07:06] LABS: African American GFR (CKD) >90 (>60 ml/min/1.73 sqM); Anion Gap 4 mmol/L; Blood Urea Nitrogen 5 mg/dL (7-17); C Reactive Protein 4.8 mg/dL (<1.0); Calcium 9.3 mg/dL (8.4-10.2); Carbon Dioxide 27 mmol/L (22-30); Chloride 104 mmol/L (98-107); Glucose 83 mg/dL (74-99); Non-African American GFR(CKD) >90 (>60 ml/min/1.73 sqM); Potassium 3.5 mmol/L (3.5-5.1); Sodium 135 mmol/L (137-145)
[2024-07-19] MEDS: ESCITALOPRAM 5 MG TAB PO SCH (09:41)
--- NOTE | 2024-07-19 10:31 | XR ---
EXAMINATION TYPE: XR foot complete LT DATE OF EXAM: 07/19/2024 COMPARISON: None HISTORY: Burn TECHNIQUE: 3 view left foot FINDINGS: No acute fracture or dislocation evident. Joint spaces are preserved. There is a staple wit hin the proximal phalanx great toe. Soft tissues appear within normal limits. No radiopaque foreign bodies evident. A suspicious cortical erosion is evident. Follow up exams can be performed 7-10 days from acute trauma for continued pain. IMPRESSION: 1. No acute osseous abnormalities left foot [facility] Natty Booker, , 07/19/2024 10:28 AM
[2024-07-19 11:42] LABS: Appearance,Urine Clear (Clear); Bilirubin,Urine Negative (Negative); Blood,Urine Small (Negative); Color,Urine Colorless; Glucose,Urine (UA) Negative (Negative); Ketones,Urine Negative (Negative); Leukocyte Esterase,Urine Negative (Negative); Nitrite,Urine Negative (Negative); PH, Urine 6.5 (5.0-8.0); Protein,Urine Negative (Negative); RBC,Urine 9 /hpf (0-5); Specific Gravity,Urine 1.005 (1.001-1.035); Squamous Epithelial Cell,Urine 1 /hpf (0-4); Urobilinogen,Urine <2.0 mg/dL (<2.0); WBC,Urine 2 /hpf (0-5)
[2024-07-19] MEDS: LORATADINE 10 MG TAB PO SCH (11:46)
--- NOTE | 2024-07-19 14:48 | P.PN ---
Subjective Progress Note Date: 07/19/24 This is a telemedicine neurology follow performed today on 07/19/2024, in association with [facility]. Patient was seen for follow-up. Patient says she is feeling much more clear, and remembers a lot more. Denies any headache, no dizziness. She does have restless leg syndrome, but present before arrival. Patient takes Mirapex. She is going to throw away gabapentin. She is also planning to start using pillbox to prevent medication mix up. Objective - Vital Signs Vital signs: Vital Signs Temp 98.0 F 07/19/24 11:18 Pulse 58 L 07/19/24 11:18 Resp 18 07/19/24 11:18 BP 160/76 07/19/24 11:18 Pulse Ox 98 07/19/24 11:18 FiO2 Intake & Output 07/18/24 07/19/24 07/19/24 18:59 06:59 18:59 Intake Total 240 260 Output Total 825 Balance -825 240 260 Weight 76.702 kg 76.4 kg Intake: IV 20 Invasive Line 1 10 Invasive Line 2 10 Oral 240 240 Output: Urine 825 Other: Voiding Method Bedside Commode Toilet Bedside Commode # Voids 3 1 # Bowel Movements 1 1 1 - Exam Mental status, speech and language functions are normal. Pupils are equal, round and reacting. Face is symmetric. No pronator drift. Sensations equal. - Labs CBC & Chem 7: 07/19/24 05:54 07/19/24 05:54 Labs: Abnormal Lab Results - Last 24 Hours (Table) 07/18/24 07/19/24 07/19/24 Range/Units 02:34 05:54 05:54 WBC 20.4 H (3.8-10.6) k/uL Neutrophils # 15.9 H (1.3-7.7) k/uL Sodium 135 L (137-145) mmol/L BUN 5 L (7-17) mg/dL C-Reactive Protein 4.8 H (<1.0) mg/dL Vitamin B12 1449.0 H (200.0-944.0) pg/mL Urine Blood (Negative) Urine RBC (0-5) /hpf 07/19/24 Range/Units 11:12 WBC (3.8-10.6) k/uL Neutrophils # (1.3-7.7) k/uL Sodium (137-145) mmol/L BUN (7-17) mg/dL C-Reactive Protein (<1.0) mg/dL Vitamin B12 (200.0-944.0) pg/mL Urine Blood Small H (Negative) Urine RBC 9 H (0-5) /hpf Assessment and Plan Assessment: * Altered mental status, likely due to acute delirium from polypharmacy. Patient was taking too many pain medications including her current prescription of oxycodone 5 mg, and also took some extra tablets of oxycodone 10 mg which were leftover from her previous knee surgery on 02/18/2023. Then she ran out of opiates 2 days prior to arrival. Patient took extra two tablets of trazodone, to help sleep, took gabapentin to which she believes that she is allergic to and also had ran out of her thyroid medications for last 7 days. Patient is completely confused about her medications, and self- medicating herself. This likely resulted in delirium, questionable overdose versus withdrawal. * Hypothyroidism. Patient claims that she had ran out of her thyroid replacement medication for the last 7 days. * Multiple sclerosis * History of right knee surgery * Ex tobacco use Plan: * Patient's altered mental status is likely from delirium due to mixing up with medications, taking too many some medication, and then running out of some other medications. Her neurological examination is completely nonfocal. * 2-D echo revealed preserved LV and RV size and systolic function with LVEF 55 to 60%. Normal left and right atrial size. No thrombus. No valvular abnormalities. No intracardiac masses. * CTA head and neck showed: No evidence of dissection of the cervical internal carotid arteries or vertebral arteries or any evidence of significant stenosis at the carotid bifurcations. No evidence of intracranial high-grade stenosis or intracranial aneurysm. * Fasting a.m. lipid panel with cholesterol 182, LDL 99, HDL 51, triglycerides 156. Patient states she takes Lipitor, although her home medications does not list about statins. * Optimize control of blood pressure. * Continue aspirin 81 mg daily. * B12 1449, folate pending. TSH 36.00, free T4 0.36, likely due to not taking her medications. * Patient may need supervision by family member to make sure she takes medications correctly. * No other neurological workup indicated. Neurologically clear for discharge.
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
[2024-07-19] MEDS: CEFEPIME 2 GM in SODIUM CHLORIDE 0.9% 100 ML IVPB SCH (15:53)
[2024-07-20] MEDS: LEVOTHYROXINE 100 MCG PO SCH (06:28)
[2024-07-20 09:06] VITALS: PULSE 62
[2024-07-20 11:37] VITALS: BP 168/73; RESP 16; TEMP 98
[2024-07-20 11:43] LABS: Basophils # (A) 0.1 k/uL (0-0.2); Basophils % (A) 1 %; Eosinophils # (A) 0.9 k/uL (0-0.7); Eosinophils % (A) 7 %; HCT 44.3 % (34.0-46.0); HGB 14.3 gm/dL (11.4-16.0); Lymphocytes # (A) 2.2 k/uL (1.0-4.8); Lymphocytes % (A) 18 %; MCH 30.3 pg (25.0-35.0); MCHC 32.3 g/dL (31.0-37.0); Monocytes # (A) 0.7 k/uL (0-1.0); Monocytes % (A) 6 %; Neutrophils # (A) 8.5 k/uL (1.3-7.7); Neutrophils % (A) 68 %; Platelet Count 307 k/uL (150-450); RBC 4.71 m/uL (3.80-5.40); RDW 13.3 % (11.5-15.5); WBC 12.5 k/uL (3.8-10.6)
[2024-07-20 12:40] LABS: African American GFR (CKD) >90 (>60 ml/min/1.73 sqM); Anion Gap 7 mmol/L; Blood Urea Nitrogen 8 mg/dL (7-17); C Reactive Protein 4.8 mg/dL (<1.0); Calcium 10.2 mg/dL (8.4-10.2); Carbon Dioxide 27 mmol/L (22-30); Chloride 105 mmol/L (98-107); Glucose 85 mg/dL (74-99); Non-African American GFR(CKD) >90 (>60 ml/min/1.73 sqM); Sodium 139 mmol/L (137-145)
--- NOTE | 2024-07-20 12:58 | P.PN ---
Subjective Progress Note Date: 07/20/24 This is a telemedicine neurology follow-up performed today on 07/20/2024, in association with Sepideh Stuart RN. Patient was seen for follow-up. Patient is sitting in the recliner, appears comfortable. Patient denies any headache, no dizziness. Patient complains of midthoracic pain, which has been present since 2004. Denies any low back pain. Objective - Vital Signs Vital signs: Vital Signs Temp 98.0 F 07/20/24 11:20 Pulse 62 07/20/24 11:20 Resp 16 07/20/24 11:20 BP 168/73 07/20/24 11:20 Pulse Ox 98 07/20/24 11:20 FiO2 Intake & Output 07/19/24 07/20/24 07/20/24 18:59 06:59 18:59 Intake Total 260 140 Output Total 500 Balance 260 -360 Weight 75.8 kg Intake: IV 20 20 Invasive Line 1 10 10 Invasive Line 2 10 10 Oral 240 120 Output: Urine 500 Other: Voiding Method Toilet Toilet Toilet Bedside Commode Bedside Commode Bedside Commode # Voids 2 1 # Bowel Movements 2 1 2 - Exam Mental status, speech and language functions are normal. Patient knows it is June 2024 and that she is in [facility] in [place]. Pupils are equal, round and reacting. Face is symmetric. No pronator drift. Sensations equal. Patient's pain location is at the thoracic spine just below the bra level. - Labs CBC & Chem 7: 07/20/24 11:06 07/20/24 11:06 Labs: Abnormal Lab Results - Last 24 Hours (Table) 07/20/24 07/20/24 Range/Units 11:06 11:06 WBC 12.5 H (3.8-10.6) k/uL Neutrophils # 8.5 H (1.3-7.7) k/uL Eosinophils # 0.9 H (0-0.7) k/uL C-Reactive Protein 4.8 H (<1.0) mg/dL Microbiology - Last 24 Hours (Table) 07/18/24 02:27 Blood Culture - Preliminary Blood Assessment and Plan Assessment: * Altered mental status, likely due to acute delirium from polypharmacy. Patient was taking too many pain medications including her current prescription of oxycodone 5 mg, and also took some extra tablets of oxycodone 10 mg which were leftover from her previous knee surgery on 02/18/2023. Then she ran out of opiates 2 days prior to arrival. Patient took extra two tablets of trazodone, to help sleep, took gabapentin to which she believes that she is allergic to and also had ran out of her thyroid medications for last 7 days. Patient is completely confused about her medications, and self- medicating herself. This likely resulted in delirium, questionable overdose versus withdrawal. Her mentation has remarkably improved. Patient is back to baseline. * Hypothyroidism. Patient claims that she had ran out of her thyroid replacement medication for the last 7 days. * Multiple sclerosis * History of right knee surgery * Restless leg syndrome, on Mirapex. * Chronic thoracic pain. * Leukocytosis, likely due to possible cellulitis involving the left foot burn. * Ex tobacco use Plan: * Patient's altered mental status is likely from delirium due to mixing up with medications, taking too many some medication, and then running out of some other medications. Her neurological examination is completely nonfocal. Patient's mentation is back to normal. * 2-D echo revealed preserved LV and RV size and systolic function with LVEF 55 to 60%. Normal left and right atrial size. No thrombus. No valvular abno rmalities. No intracardiac masses. * CTA head and neck showed: No evidence of dissection of the cervical internal carotid arteries or vertebral arteries or any evidence of significant stenosis at the carotid bifurcations. No evidence of intracranial high-grade stenosis or intracranial aneurysm. * Fasting a.m. lipid panel with cholesterol 182, LDL 99, HDL 51, triglycerides 156. Patient states she takes Lipitor, although her home medications does not list about statins. * Optimize control of blood pressure. * Continue aspirin 81 mg daily. * B12 1449, folate cancelled. TSH 36.00, free T4 0.36, likely due to not taking her medications. * Check x-ray of the thoracic spine. * Patient may need supervision by family member to make sure she takes medications correctly. She is also planning to start using pillbox to prevent medication mix up. * Leukocytosis, likely due to possible cellulitis involving the left foot burn. ID following. No evidence of meningitis encephalitis. No indication for LP. Patient currently on cefepime started by ID. * No other neurological workup indicated. Neurologically clear for discharge. Dr. Tristan Andino starting service from the morning for any concerns. Addendum: Thoracic spine XR showed upper thoracic spine kyphosis. No other pathology.
--- NOTE | 2024-07-20 12:58 | P.DS ---
Providers Date of admission: 07/17/24 19:13 Expected date of discharge: 07/20/24 Attending physician: Jg Tafoya MD Consults: 07/17/24 19:15 Consult Physician Routine Consulting Provider: Jacob Jerome Consult Reason/Comments: cva Do you want consulting provider notified?: Yes 07/18/24 00:35 Consult Physician Routine Consulting Provider: Isaac Perez Consult Reason/Comments: meningitis Do you want consulting provider notified?: Yes, Notify in am Primary care physician: Jackie Frank Hospital Course: Discharge Diagnosis: Acute encephalopathy secondary to polypharmacy. Stroke ruled out Leukocytosis. Likely reactive-UA negative, C. difficile negative, foot x-ray negative Severe hypothyroidism with TSH of 36 Asymptomatic bradycardia Chronic back pain Left foot burn without signs of infection Hospital Course: Patient is a 63-year-old female with known hypothyroidism, MS, and chronic pain who presented to the emergency department with strokelike symptoms. Was having difficulty in speaking. NIH stroke score was 2 on arrival. Found to be bradycardic with leukocytosis. Mentation improved by the morning after admission. Seen by infectious disease as there was some concerns for possible encephalitis, this was felt to be less likely and more likely due to polypharmacy. Seen by neurology who did not feel this was consistent with stroke. Underwent CT brain which demonstrated no acute intracranial process. CT angio of the chest which demonstrated no carotid stenosis. Echocardiogram demonstrated ejection fraction of 55 to 60%. Mentation had returned to baseline. She was found to have a significantly elevated TSH at 36 and had been out of her Synthroid. Had increasing white blood cell count at max at 20. Extensive infectious workup was negative including foot x-ray, urinalysis, and C. difficile testing. Patient seen and examined at bedside. Feeling well. No complaints currently. Will not be combining medications. Is aware not to take gabapentin and plans on discarding this medication at home. Vital signs reviewed and stable. General: Nontoxic, no distress, appears at stated age Cardiovascular: S1S2 reg, no murmur, positive posterior tibial pulse bilateral, Lungs: CTA bilateral, no rhonchi, no rales, no accessory muscle use Abdominal: Soft, nontender to palpation, no guarding, no appreciable organomegaly Ext: No gross muscle atrophy, no edema b/l lower extremities, no contractures Neuro: CN II-XI grossly intact, no focal neuro deficits Psych: Alert, oriented, appropriate affect A total of 32 minutes of time were spent preparing this complex discharge summary. Patient was discharged on 07/20/24. This dictation was prepared using [employer] voice recognition software. Though every attempt is made to correct errors during dictation some may still exist. Patient Condition at Discharge: Stable Plan - Discharge Summary Discharge Rx Participant: No New Discharge Prescriptions: Continue Levothyroxine Sodium [Synthroid] 100 mcg PO DAILY Ibandronate Sodium [Boniva] 150 mg PO QMONTHLY Escitalopram [Lexapro] 5 mg PO DAILY Silver Sulfadiazine [Silver Sulfadiazine 1%] 1 applic TOPICAL BID traZODone HCL [Desyrel] 50 - 150 mg PO HS PRN PRN Reason: sleep Meloxicam [Mobic] 7.5 mg PO DAILY PRN PRN Reason: Pain Pramipexole [Mirapex] 0.25 mg PO HS oxyCODONE HCL [OxyIR] 5 mg PO Q4H PRN PRN Reason: Pain Cephalexin [Keflex] 500 mg PO QID Pantoprazole [Protonix] 40 mg PO DAILY PRN PRN Reason: acid reflux Discharge Medication List Levothyroxine Sodium [Synthroid] 100 mcg PO DAILY 11/26/18 [History] Cephalexin [Keflex] 500 mg PO QID 07/18/24 [History] Escitalopram [Lexapro] 5 mg PO DAILY 07/18/24 [History] Ibandronate Sodium [Boniva] 150 mg PO QMONTHLY 07/18/24 [History] Meloxicam [Mobic] 7.5 mg PO DAILY PRN 07/18/24 [History] Pantoprazole [Protonix] 40 mg PO DAILY PRN 07/18/24 [History] Pramipexole [Mirapex] 0.25 mg PO HS 07/18/24 [History] Silver Sulfadiazine [Silver Sulfadiazine 1%] 1 applic TOPICAL BID 07/18/24 [History] oxyCODONE HCL [OxyIR] 5 mg PO Q4H PRN 07/18/24 [History] traZODone HCL [Desyrel] 50 - 150 mg PO HS PRN 07/18/24 [History] Follow up Appointment(s)/Referral(s): Jackie Frank, PAC [Primary Care Provider] - 1-2 days Activity/Diet/Wound Care/Special Instructions: Activity: As tolerated Diet: regular Special Instructions: Do not combine multiple sedative medications. Please obtain a pillbox to ensure you are accurately taking all medications. Do not drive while on opiate medications. Suggest supervision to ensure medications are being taken correctly. Monitor your burn closely. Discharge Disposition: HOME SELF-CARE
--- NOTE | 2024-07-20 14:25 | XR ---
EXAMINATION TYPE: XR thoracic spine 2V DATE OF EXAM: 07/20/2024 COMPARISON: NONE HISTORY: Thoracic pain TECHNIQUE: 3 view thoracic spine FINDINGS: There are 12 thoracic type vertebral bodies. Pedicles are intact. There is mild kyphosis of the upper thoracic spine with compensatory lordosis of the lower cervical spine. Disc spaces appear preserved. IMPRESSION: Upper thoracic kyphosis [facility], , 07/20/2024 2:23 PM
== END 2024-07-20 14:15 | disposition home or self-care (01) | DRG 93 ==
LOC: EC 17:47 → 3SCARD 19:13
PROVIDERS: ADMIT Internal Medicine; ATTEND Internal Medicine
DX: G92.8 Other toxic encephalopathy (principal); G35 Multiple sclerosis; F32.A Depression, unspecified; G25.81 Restless legs syndrome; E03.9 Hypothyroidism, unspecified; R00.1 Bradycardia, unspecified; F41.9 Anxiety disorder, unspecified; G89.29 Other chronic pain; M40.204 Unspecified kyphosis, thoracic region; T25.122A Burn of first degree of left foot, initial encounter; K21.9 Gastro-esophageal reflux disease without esophagitis; T50.915A Adverse effect of multiple unspecified drugs, medicaments and biological substances, initial encounter; T38.1X6A Underdosing of thyroid hormones and substitutes, initial encounter; Y92.009 Unspecified place in unspecified non-institutional (private) residence as the place of occurrence of the external cause; Z79.1 Long term (current) use of non-steroidal anti-inflammatories (NSAID); Z79.899 Other long term (current) drug therapy; Z87.891 Personal history of nicotine dependence; Z88.8 Allergy status to other drugs, medicaments and biological substances; Z88.3 Allergy status to other anti-infective agents
CPT/HCPCS: 36415; 70450; 70496; 70498; 72070; 80048; 80053; 80061; 80306; 81001; 81003; 82550; 82607; 82746; 83735; 84145; 84439; 84443; 84484; 85025; 85610; 85730; 86140; 87040; 87324; 93005; 93306; 94760; 96361; 96365; 96366; 96368; 96375; 99291

== ENCOUNTER → 2024-08-07 | Outpatient (CLI) | payer MEDICARE ==
--- NOTE | 2024-08-07 18:48 | MR ---
EXAMINATION TYPE: MR lumbar spine wo con DATE OF EXAM: 08/07/2024 COMPARISON: CT abdomen pelvis 01/11/2021, MRI lumbar spine 10/28/2018 HISTORY: Low back pain into em lower extremities TECHNIQUE: Multiplanar, multisequence images of the lumbar spine were acquired without IV contrast. FINDINGS: The lumbar vertebral bodies do have preserved heights and alignment. Minimal multilevel di sc desiccation. No significant disc height loss. The conus medullaris and the distal spinal cord do a ppear unremarkable with regards to their signal intensity and morphology. L1-L2: No significant disc pathology is identified. The spinal canal and neural foramen are patent. L2-L3: No significant disc pathology is identified. The spinal canal and neural foramen are patent. L3-L4: Minimal broad-based disc bulge without significant mass effect upon the thecal sac. Facet julián ints are enlarged. Neural canals do remain patent.. L4-L5: Minimal broad-based disc bulge without significant mass effect upon the thecal sac. Facet julián ints are enlarged. Neural canals do remain patent. L5-S1: The intervertebral disc appears round on its contour posteriorly without significant mass eff ect upon the thecal sac. Facet joints are enlarged. Neural canals do remain patent. Other significant findings: None. IMPRESSION: 1. No definitive evidence for disc herniation or significant spinal canal stenosis. No significant n euroforaminal stenosis. 2. Minimal multilevel disc degeneration with associated osteoarthritic changes. [facility], , 08/07/2024 6:45 PM
== END | disposition home or self-care (01) ==
LOC: RADMRIMAIN 15:37
PROVIDERS: ATTEND Family Medicine
DX: M51.369 Other intervertebral disc degeneration, lumbar region without mention of lumbar back pain or lower extremity pain (principal); M81.0 Age-related osteoporosis without current pathological fracture; M41.115 Juvenile idiopathic scoliosis, thoracolumbar region
CPT/HCPCS: 72148

== ENCOUNTER → 2024-09-18 | Outpatient (CLI) | payer MEDICARE ==
--- NOTE | 2024-09-19 08:33 | MM ---
Reason for Exam: Screening (asymptomatic). Last mammogram was performed 2 year(s) and 6 month(s) ago. Patient History: Menarche at age 12. First Full-Term at age 20. Hysterectomy at age 29. Postmenopausal. Estrogen for 6 years, 4 months. Maternal aunt had breast cancer, age 75. Risk Values: Brandie 5 year model risk: 1.4%. NCI Lifetime model risk: 6.0%. Prior Study Comparison: 03/20/2017 Bilateral Screening Mammogram, [facility]. 11/17/2019 Bilateral Screening Mammogram, [facility]. 03/02/2022 Bilateral Screening Mammogram, [facility]. Tissue Density: There are scattered areas of fibroglandular density. Findings: Analyzed By CAD. There is no suspicious group of microcalcifications or new suspicious mass in either breast. Overall Assessment: Negative, BI-RAD 1 Management: Screening Mammogram of both breasts in 1 year. . Patient should continue monthly self-breast exams. A clinical breast exam by your physician is recommended on an annual basis. This exam should not preclude additional follow-up of suspicious palpable abnormalities. Note on Brandie scores and lifetime risk: 1. A Brandie score greater than 3% is considered moderate risk. If this is the case, consider specialist referral to assess eligibility for a risk reducing agent. 2. If overall lifetime risk for the development of breast cancer is 20% or higher, the patient may qualify for future screening with alternating mammogram and breast MRI. [facility], , 09/19/2024 8:30 AM. Electronically signed and approved by: Hudson Walsh M.D. Radiologis
== END | disposition home or self-care (01) ==
LOC: RADMAMWWP 16:10
PROVIDERS: ATTEND Family Medicine
DX: Z12.31 Encounter for screening mammogram for malignant neoplasm of breast (principal); R92.323 Mammographic fibroglandular density, bilateral breasts; Z78.0 Asymptomatic menopausal state; Z80.3 Family history of malignant neoplasm of breast
CPT/HCPCS: 77063; 77067

== ENCOUNTER → 2025-03-02 | Outpatient (CLI) | payer OTHER, MEDICARE ==
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
== END | disposition home or self-care (01) ==
LOC: RADXRYALE 11:12
PROVIDERS: ATTEND Physician Assistant Medical
DX: S22.20XA Unspecified fracture of sternum, initial encounter for closed fracture (principal); S22.41XA Multiple fractures of ribs, right side, initial encounter for closed fracture; S22.42XA Multiple fractures of ribs, left side, initial encounter for closed fracture; M85.80 Other specified disorders of bone density and structure, unspecified site; I51.7 Cardiomegaly; J44.9 Chronic obstructive pulmonary disease, unspecified; W22.11XA Striking against or struck by driver side automobile airbag, initial encounter; V43.52XA Car driver injured in collision with other type car in traffic accident, initial encounter
CPT/HCPCS: 71111; 71120